=== PATIENT | female | born 1935 | race Caucasian/White ===

== ENCOUNTER 2024-03-30 04:45 | Emergency (ER) | payer OTHER, SELFPAY ==
[2024-03-30] VITALS (9 sets, daily range): BP systolic 131–153; BP diastolic 64–82; PULSE 76–78; BMI 31.3
--- NOTE | 2024-03-30 04:47 | ED.GENMED ---
History of Present Illness
<Mariella Triplett PA-C - Last Filed: 03/30/24 08:04>
General
Chief Complaint: Nose Bleed
Source: patient
Exam Limitations: none
Time Seen by Provider: 03/30/24 04:46
Nursing documentation reviewed up to this point in time: agreed with
History of Present Illness
History of Present Illness:
88-year-old female with past medical history of chronic anemia, hypertension, presents to the emergency department today with concerns of a nosebleed. Patient is from [place] and recently moved to [place] to live with her son.
Ubasofeg-ys-zed over the phone reports that patient got up in the morning to use the bathroom when she noted that her nose started bleeding. She then started to cough up blood shortly after her nose started bleeding. Patient denies any trauma to
the area. Patient does not take any blood thinners. Patient reports that multiple clots came from her nose. Patient also states that she feels dizzy and lightheaded. She denies chest pain, shortness of breath. She is able to ambulate without
difficulty. Of note, patient was recently discharged from the hospital in [place] for C.diff infection and metabolic encephalopathy. She was noted to be anemic and have low platelets at that time. Daughter in law reports that her hemoglobin was 8
upon discharge and that she had 'low platelets, elevated ammonia, elevated bilirubin, . Patient denies shortness of breath, alcohol use, NSAID use, chest pain.
Review of Systems
<Mariella Triplett PA-C - Last Filed: 03/30/24 08:04>
Review of Systems
All Other Systems: ROS reviewed and negative except as documented in HPI and ROS
Phy Exam
<Mariella Triplett PA-C - Last Filed: 03/30/24 08:04>
Physical Exam
Physical Exam:
General: Patient is well appearing and in no acute distress; non-toxic
Skin: Warm and dry, no rashes or lesions
Head: Normocephalic, atraumatic
Eyes: Sclera non-icteric. EOMs intact. PERRLA.
Cardiac: Regular rate and rhythm, no murmur
Pulm: Normal respiratory effort, no wheezes, rales, rhonchi
Abdomen: No abdominal tenderness no guarding, no rebound
Neuro: CN II-XII intact, no focal neurologic deficits.
Psychiatric: Appropriate mood and affect.
Course
<Mariella Triplett PA-C - Last Filed: 03/30/24 08:04>
Orders/Labs/Results
Orders:
Orders
03/30/24 05:01
IV Insert/Care/Rem.- Treatment PRN
03/30/24 05:03
Type+Screen Urgent
Complete Blood Count/With Diff Urgent
Comprehensive Metabolic Panel Urgent
03/30/24 05:25
ABO2 Urgent
BBK Wristband Number:
Associate notified that ABO2 has been ordered: [id number]
Date: 03/30/24
Time: 05:21
Assembling Inspector ID: [id number]
03/30/24 05:30
Orthostatic VS- Treatment ONCE
03/30/24 05:32
Electrocardiogram (*1) Urgent
Reason for Study: Vertigo / Dizzy
EKG- Treatment ONCE
03/30/24 06:19
Ammonia Urgent
Prothrombin Time Urgent
Abnormal Lab Results
03/30/24 03/30/24
05:03 06:19
RBC 2.27 L 10^6/uL
(4.20-5.40)
Hgb 8.2 L g/dL
(12.0-16.0)
Hct 22.9 L %
(37.0-47.0)
MCV 100.9 H fL
(81.0-99.0)
MCH 36.1 H pg
(27.0-31.0)
RDW 16.7 H %
(11.5-14.5)
Abs Immat Gran (auto) 0.1 H 10^3/uL
(0-0.05)
Absolute Monos (auto) 1.0 H 10^3/uL
(0.1-0.6)
Immature Gran % 0.6 H %
(0-0.5)
Lymphocytes % 19.7 L %
(20.5-51.1)
Monocytes % 10.0 H %
(1.7-9.3)
PT 21.5 H Sec
(11.4-14.6)
Potassium 3.0 L mmol/L
(3.5-5.1)
BUN 21 H mg/dl
(7-17)
Creatinine 0.5 L mg/dL
(0.6-1.0)
Glucose 135 H mg/dl
(70-99)
Total Bilirubin 6.5 H mg/dl
(0.2-1.3)
AST 102 H U/L
(14-36)
ALT 49 H U/L
(0-35)
Alkaline Phosphatase 202 H U/L
(38-126)
Total Protein 6.0 L g/dl
(6.3-8.2)
Albumin 2.8 L g/dl
(3.5-5.0)
03/30/24 05:03
03/30/24 05:03
Vital Signs
Initial and Last Documented VS:
Initial Vital Signs
Pulse Resp
97 18
03/30/24 04:53 03/30/24 04:53
Last Documented Vital Signs
Pulse Resp BP Pulse Ox
89 18 152/64 94
03/30/24 07:43 03/30/24 07:43 03/30/24 07:00 03/30/24 06:45
<Evie Lara, DO - Last Filed: 03/30/24 07:54>
Orders/Labs/Results
Orders:
Orders
03/30/24 05:01
IV Insert/Care/Rem.- Treatment PRN
03/30/24 05:03
Type+Screen Urgent
Complete Blood Count/With Diff Urgent
Comprehensive Metabolic Panel Urgent
03/30/24 05:25
ABO2 Urgent
BBK Wristband Number:
Associate notified that ABO2 has been ordered: [id number]
Date: 03/30/24
Time: 05:21
Assembling Inspector ID: [id number]
03/30/24 05:30
Orthostatic VS- Treatment ONCE
03/30/24 05:32
Electrocardiogram (*1) Urgent
Reason for Study: Vertigo / Dizzy
EKG- Treatment ONCE
03/30/24 06:19
Ammonia Urgent
Prothrombin Time Urgent
Abnormal Lab Results
03/30/24 03/30/24
05:03 06:19
RBC 2.27 L 10^6/uL
(4.20-5.40)
Hgb 8.2 L g/dL
(12.0-16.0)
Hct 22.9 L %
(37.0-47.0)
MCV 100.9 H fL
(81.0-99.0)
MCH 36.1 H pg
(27.0-31.0)
RDW 16.7 H %
(11.5-14.5)
Abs Immat Gran (auto) 0.1 H 10^3/uL
(0-0.05)
Absolute Monos (auto) 1.0 H 10^3/uL
(0.1-0.6)
Immature Gran % 0.6 H %
(0-0.5)
Lymphocytes % 19.7 L %
(20.5-51.1)
Monocytes % 10.0 H %
(1.7-9.3)
PT 21.5 H Sec
(11.4-14.6)
Potassium 3.0 L mmol/L
(3.5-5.1)
BUN 21 H mg/dl
(7-17)
Creatinine 0.5 L mg/dL
(0.6-1.0)
Glucose 135 H mg/dl
(70-99)
Total Bilirubin 6.5 H mg/dl
(0.2-1.3)
AST 102 H U/L
(14-36)
ALT 49 H U/L
(0-35)
Alkaline Phosphatase 202 H U/L
(38-126)
Total Protein 6.0 L g/dl
(6.3-8.2)
Albumin 2.8 L g/dl
(3.5-5.0)
03/30/24 05:03
03/30/24 05:03
Vital Signs
Initial and Last Documented VS:
Initial Vital Signs
Pulse Resp
97 18
03/30/24 04:53 03/30/24 04:53
Last Documented Vital Signs
Pulse Resp BP Pulse Ox
89 18 152/64 94
03/30/24 07:43 03/30/24 07:43 03/30/24 07:00 03/30/24 06:45
Isaaclt;Mariella Triplett PA-C - Last Filed: 03/30/24 08:04>
MDM/Problems Addressed
Differential Diagnosis Includes:
Differentials include epistaxis, gastritis, esophageal varices, dehydration, anemia
MDM/Problems Addressed:
88-year-old female with past medical history of chronic anemia, hypertension, presents to the emergency department today with concerns of a nosebleed. Patient is from [place] and recently moved to [place] to live with her son.
Pckciubp-bb-fzi over the phone reports that patient got up in the morning to use the bathroom when she noted that her nose started bleeding. She also had episodes of coughing up blood. Upon arrival to emergency department, she had some mild
lightheadedness but no longer has any bleeding, she has no abdominal pain, she is afebrile.
I was able to obtain previous medical records from son. Patient is currently being worked up for low platelets, elevated LFT T's and elevated bilirubin. She does have history of fatty liver disease. We were able to view records from son and
patient's lab work is improved from prior. Will discharge with outpatient follow-up and follow-up with geriatrics. No indication for admission at this time. Patient stable for discharge.
Chronic conditions affecting care:
hypertension, anemia
<Mariella Triplett PA-C - Last Filed: 03/30/24 08:04>
*Pulse Oximetry
Patient hypoxic: no
*Critical Care Note
Total Time (30-74mins, 75-104mins- exclusive of procedures): Not Applicable
Data Reviewed
Review of Other/Old Records Reveals: Records (No previous ER physician documentation to review, no discharge summaries for review)
Source: patient and records
Prescriptions/Medications Considered But Not Given:
n/a
Further Testing Considered But Not Given:
n/a
ED Attending Note
<Mariella Triplett PA-C - Last Filed: 03/30/24 08:04>
-
Portions of this chart may have been created with voice recognition software.� Occasional wrong word or��sound alike� substitutions may have occurred due to the inherent limitations of voice recognition software.
<Evie Lara DO - Last Filed: 03/30/24 07:54>
ED Attending Note
Patient seen and examined by attending physician: Yes
I performed a history and physical exam of patient and discussed management with resident, I reviewed resident's note and agree with documented findings and plan of care.: Yes
ED Attending Note:
This is an 88-year-old woman who was hospitalized 1 week ago initially for treatment of UTI, found to have hepatic encephalopathy with elevated ammonia level. Noted to be anemic as well as thrombocytopenic with chronically elevated LFTs,
chronically elevated bilirubin ranging from 4-7. CT abdomen pelvis noted for fatty liver but no evidence of cirrhosis. She was treated for UTI then found to have C. difficile, currently on oral vancomycin for C. difficile. Discharged 1 week ago
from hospital in [place] and currently staying with her daughter and son-in-law locally. While hospitalized she was evaluated by civil preparedness officer, underwent bone marrow biopsy, results are pending.
She is brought to the ED by EMS after suffering an acute nosebleed tonight. No insightful injury. No prior history of nosebleeds.
No active bleeding as per EMS but intermittent coughing and gagging and spitting up small amount of dark blood.
She denies chest pain nor abdominal pain, no dizziness nor lightheadedness.
No prior history of hematemesis nor GI bleed.
88-year-old woman appears her stated age, awake and alert, pleasant, appears in no acute distress. When questioned she often refers to her daughter but follows commands easily and easily conversant.
HEENT: Mild icterus. Nares are patent without evidence of blood nor active bleeding. Posterior pharynx is clear without streaking of blood.
Neck is supple, nontender, no adenopathy.
Heart is regular rate and rhythm.
Lungs are clear to auscultation, respirations are easy and nonlabored.
Abdomen is soft and nontender. No palpable masses.
Extremities with trace pretibial edema, no clubbing or cyanosis. Nontender. Peripheral pulses are full and equal bilaterally.
Patient presents with reported epistaxis prehospital has stopped without specific intervention. No evidence of posterior epistaxis.
Labs show moderate anemia with hemoglobin of 8.2 which is improved from discharge hemoglobin of 8.0.
Platelet count is normal at 134, markedly improved from 1 week ago.
Mildly elevated LFTs with moderately elevated bilirubin, overall stable from previous.
INR 1.85. Similar to previous.
Patient has been observed in the ED over the past 3 hours without recurrent epistaxis, no cough, no vomiting.
Daughter assures me that bleeding initially was from nose, spontaneous epistaxis and not hematemesis nor hemoptysis. She has had no bleeding from anywhere since arrival to the ED.
Labs are reassuring and unchanged from previous.
She remains hemodynamically stable.
Will discharge to home with recommendations that she avoid blowing, sniffing, picking her nose over the next 3 days. Thereafter may initiate saline nasal spray to both nostrils once or twice a day.
As patient currently residing with her daughter and son-in-law and they are attempting to establish with specialist in this area, will refer to hematology, GI as well as our referral service to establish with a PCP in this area.
Return precautions discussed.
Discharge Plan
Departure
Patient Disposition: Home (Routine Discharge)
Date of Disposition: 03/30/24
Time of Disposition: 07:09
Patient with high blood pressure during this ER visit?: Yes
Condition: Good
Discharge Problem:
Epistaxis
Instructions: Nosebleeds (DC), BLOOD PRESSURE
Referrals:
Justin Grey MD [Active] - Call in 1-3 days for appt
PRIVATE,PHYSICIAN [Family Provider] -
Activity Restrictions/Additional Instructions:
Should you continue to have nose bleeding, you can hold pressure just below the bony part of the nose and lean forward.
Your hemoglobin today was 8.2, which is an improvement, and your platelet count was 134 K which is also improved from prior. Otherwise, your chemistry panel demonstrates chronic elevations in bilirubin and LFTs.
We have attached a referral for Dr. Grey's office, a tightener, you can call the number today to schedule an appointment.
Please return to emergency department should you experience chest pain, shortness of breath with using activity, confusion, acute worsening of her symptoms, or any other signs or symptoms concerning you.
Interventions
Interventions:
*Risk Screen - Suicide Last Done: 03/30/24 04:48
*General Assessment Last Done: 03/30/24 04:48
*Neglect/Abuse Screening Last Done: 03/30/24 04:48
*ED COVID-19 Vaccine History Last Done: 03/30/24 04:48
ED-EENT Assessment Last Done: 03/30/24 05:18
Discharge Date and Time
Print Language: LITHUANIAN
[2024-03-30 05:15] LABS: % Basophils 0.8 % (0-2); % Immature Granulocytes 0.6 % (0-0.5); % Lymphocytes 19.7 % (20.5-51.1); % Neutrophils 64.9 % (42.2-75.2); Absolute Basophils 0.1 10^3/uL (0-0.2); Absolute Eosinophils 0.4 10^3/uL (0-0.7); Absolute Immature Granulocytes 0.1 10^3/uL (0-0.05); Absolute Lymphocytes 1.9 10^3/uL (1.2-3.4); Absolute Neutrophils 6.2 10^3/uL (1.4-6.5); Hematocrit 22.9 % (37.0-47.0); Hemoglobin 8.2 g/dL (12.0-16.0); Mean Corp Hgb Conc. 35.8 g/dL (33.0-37.0); Mean Corpuscular Hgb 36.1 pg (27.0-31.0); Mean Corpuscular Volume 100.9 fL (81.0-99.0); Mean Platelet Volume 10.1 fL (7.4-10.4); Nucleated Red Blood Cells % 0 %; Platelet Count 134 10^3/uL (130-400); Red Blood Cell Count 2.27 10^6/uL (4.20-5.40); Red Cell Dist. Width 16.7 % (11.5-14.5); White Blood Cell Count 9.5 10^3/uL (4.8-10.8)
[2024-03-30 05:38] LABS: ALT (SGPT) 49 U/L (0-35); AST (SGOT) 102 U/L (14-36); Albumin 2.8 g/dl (3.5-5.0); Alkaline Phosphatase 202 U/L (38-126); Blood Urea Nitrogen 21 mg/dl (7-17); Calcium 8.4 mg/dl (8.4-10.2); Carbon Dioxide 30 mmol/L (22-30); Chloride 103 mmol/L (98-107); Glucose 135 mg/dl (70-99); Sodium 139 mmol/L (135-145); Total Bilirubin 6.5 mg/dl (0.2-1.3); eGFR > 60.00
[2024-03-30 06:42] LABS: INR 1.85; PT 21.5 Sec (11.4-14.6)
[2024-03-30 06:53] LABS: Ammonia 28 umol/L (9-30)
== END 2024-03-30 08:24 | disposition home or self-care (01) ==
LOC: EMR 04:45
PROVIDERS: Physician Assistant; EMERGENCY PHYSICIAN Emergency Medicine
DX: R04.0 Epistaxis (principal); D64.9 Anemia, unspecified; I10 Essential (primary) hypertension; G93.41 Metabolic encephalopathy; K76.0 Fatty (change of) liver, not elsewhere classified
CPT/HCPCS: 99283; 80053; 82140; 85025; 85610; 86850; 86900; 86901; 93005

== ENCOUNTER 2024-04-03 08:28 | Inpatient (IN) | payer OTHER, SELFPAY ==
[2024-04-03] VITALS (18 sets, daily range): BP systolic 112–146; BP diastolic 45–79; BMI 32.0; BMI 31.0
[2024-04-03 05:58] LABS: % Eosinophils 7.1 % (0-6); % Immature Granulocytes 0.7 % (0-0.5); % Lymphocytes 14.9 % (20.5-51.1); % Neutrophils 62.3 % (42.2-75.2); Absolute Basophils 0.1 10^3/uL (0-0.2); Absolute Eosinophils 0.5 10^3/uL (0-0.7); Absolute Immature Granulocytes 0.1 10^3/uL (0-0.05); Absolute Lymphocytes 1.1 10^3/uL (1.2-3.4); Absolute Neutrophils 4.5 10^3/uL (1.4-6.5); Hematocrit 17.8 % (37.0-47.0); Hemoglobin 6.1 g/dL (12.0-16.0); Mean Corp Hgb Conc. 34.3 g/dL (33.0-37.0); Mean Corpuscular Volume 107.9 fL (81.0-99.0); Mean Platelet Volume 9.7 fL (7.4-10.4); Nucleated Red Blood Cells % 0 %; Platelet Count 115 10^3/uL (130-400); Red Blood Cell Count 1.65 10^6/uL (4.20-5.40); Red Cell Dist. Width 17.4 % (11.5-14.5); White Blood Cell Count 7.2 10^3/uL (4.8-10.8)
[2024-04-03 06:05] LABS: INR 2.05
[2024-04-03 06:06] LABS: APTT 48.3 Sec (23.4-35.0)
[2024-04-03 06:21] LABS: ALT (SGPT) 39 U/L (0-35); AST (SGOT) 87 U/L (14-36); Albumin 2.7 g/dl (3.5-5.0); Alkaline Phosphatase 134 U/L (38-126); Blood Urea Nitrogen 19 mg/dl (7-17); Carbon Dioxide 30 mmol/L (22-30); Chloride 102 mmol/L (98-107); Estimated Creatinine Clearance 57 ml/min; Glucose 115 mg/dl (70-99); Potassium 3.3 mmol/L (3.5-5.1); Sodium 138 mmol/L (135-145); Total Bilirubin 5.6 mg/dl (0.2-1.3); Total Protein 5.6 g/dl (6.3-8.2); eGFR > 60.00
--- NOTE | 2024-04-03 07:12 | ED.GENMED ---
History of Present Illness
General
Chief Complaint: Rectal Bleeding
Source: patient
Exam Limitations: none
Time Seen by Provider: 04/03/24 05:57
Nursing documentation reviewed up to this point in time: agreed with
History of Present Illness
History of Present Illness:
88-year-old female presents emergency ferment due to nosebleed and rectal bleeding. Recently hospitalized in [place] for UTI and C. difficile. Nosebleed started this morning, as well as rectal bleeding.
Past History
Past History
ED Past Medical History: HTN and Other (Anemia, fatty liver)
ED Past Surgical History: Appendectomy and Gynecological (Hysterectomy)
Social History
Tobacco: Non-smoker
Alcohol: None
Drug: None
Living: with family
Review of Systems
Review of Systems
Allergies reviewed?: Yes
All Other Systems: Not applicable
Constitutional: Reports no symptoms
EENT: Reports other (Epistaxis)
Respiratory: Reports no symptoms
Cardiac: Reports no symptoms
ABD/GI: Reports bloody stools
: Reports no symptoms
Musculoskeletal: Reports no symptoms
Skin: Reports no symptoms
Neurological: Reports no symptoms
Endocrine: Reports no symptoms
Hematologic/Lymphatic: Reports bleeding
Psychiatric: Reports no symptoms
Phy Exam
Physical Exam
Physical Exam:
Physical Exam
General: no apparent distress, not acutely ill
Neck: supple. no meningeal signs. normal posterior pharynx
Heart: s1/s2 regular rate and rhythm, no murmur. equal radial
pulses.
HEENT: Pupils equal round reactive to light, EOMI, right sided nosebleed, bleeding controlled
Lungs: no acute respiratory distress. clear bilaterally
Abdomen: normal bowel sounds. not tender. no CVAT, blood clots dark blood per rectum
Neuro: alert and oriented to person place. no focal neurological deficits cranial nerves II through XII intact
Skin: no rash
Psychiatric: well kept. interactive and cooperative
Extremities: no edema. no calf tenderness. negative homans. good distal pulses
Course
Orders/Labs/Results
Orders:
Orders
04/03/24 05:41
Cardiac Monitoring- Treatment ONCE
IV Insert/Care/Rem.- Treatment PRN
O2 Therapy [RESP] Urgent
Titrate/Wean O2 to maintain O2 sat greater than (%): 93
Special Instructions: MAINTAIN CONTINOUS O2 SATS > OR = 93%
Pulse Ox/spot Check [RESP] Urgent
Quantity: 1
Special Instructions: ON ROOM AIR
04/03/24 05:42
Type+Screen Urgent
Complete Blood Count/With Diff Urgent
Comprehensive Metabolic Panel Urgent
PTT Urgent
Prothrombin Time Urgent
04/03/24 07:21
Blood Bank Products [* Blood Bank Products] Urgent
'titus Orders: 1 unit prbcs
Blood Bank Products: *Packed RBC Leuko(PRBC's)
Quantity: 1
Transfuse Today: Yes
Reason: Bleeding
Abnormal Lab Results
04/03/24
05:42
RBC 1.65 L 10^6/uL
(4.20-5.40)
Hgb 6.1 L* D g/dL
(12.0-16.0)
Hct 17.8 L* %
(37.0-47.0)
MCV 107.9 H fL
(81.0-99.0)
MCH 37.0 H pg
(27.0-31.0)
RDW 17.4 H %
(11.5-14.5)
Plt Count 115 L 10^3/uL
(130-400)
Abs Immat Gran (auto) 0.1 H 10^3/uL
(0-0.05)
Absolute Lymphs (auto) 1.1 L 10^3/uL
(1.2-3.4)
Absolute Monos (auto) 1.0 H 10^3/uL
(0.1-0.6)
Immature Gran % 0.7 H %
(0-0.5)
Lymphocytes % 14.9 L %
(20.5-51.1)
Monocytes % 14.0 H %
(1.7-9.3)
Eosinophils % 7.1 H %
(0-6)
PT 23.0 H Sec
(11.4-14.6)
APTT 48.3 H Sec
(23.4-35.0)
Potassium 3.3 L mmol/L
(3.5-5.1)
BUN 19 H mg/dl
(7-17)
Creatinine 0.5 L mg/dL
(0.6-1.0)
Glucose 115 H mg/dl
(70-99)
Calcium 8.0 L mg/dl
(8.4-10.2)
Total Bilirubin 5.6 H mg/dl
(0.2-1.3)
AST 87 H U/L
(14-36)
ALT 39 H U/L
(0-35)
Alkaline Phosphatase 134 H U/L
(38-126)
Total Protein 5.6 L g/dl
(6.3-8.2)
Albumin 2.7 L g/dl
(3.5-5.0)
04/03/24 05:42
04/03/24 05:42
Vital Signs
Initial and Last Documented VS:
Initial Vital Signs
Temp Pulse Resp
97.9 F 98 19
04/03/24 05:29 04/03/24 05:29 04/03/24 05:29
Last Documented Vital Signs
Temp Pulse Resp BP Pulse Ox
97.9 F 109 18 119/48 93
04/03/24 05:29 04/03/24 07:15 04/03/24 07:15 04/03/24 07:00 04/03/24 07:15
MDM/Problems Addressed
Differential Diagnosis Includes:
Epistaxis, coagulopathy
MDM/Problems Addressed:
88-year-old female with lower GI bleed and epistaxis, coagulopathy.
Chronic conditions affecting care: Other (Liver dysfunction, coagulopathy)
Acute Exacerbation and/or Progression of Chronic Illness:
Coagulopathy
*Pulse Oximetry
Patient hypoxic: no
*Critical Care Note
Total Time (30-74mins, 75-104mins- exclusive of procedures): 30
comment:
Critical care statement: A total of 30 minutes of critical care time was provided for this patient. This includes management of unstable vital signs, evaluation of the patient at bedside, reviewing the patient's pertinent medical records, discussion
with consultants, review of old EKGs and review of pertinent medical records. This time with separate from time utilized to perform the aforementioned documented procedures
Data Reviewed
Further Testing Considered But Not Given:
CTA not indicated
Patient Management
Social determinants of health affecting care: Living situation and Strong social support
Discussion with other providers: Hospitalist
Escalation/DeEscalation of care consider admission/obs:
admit indicated
ED Attending Note
-
Portions of this chart may have been created with voice recognition software.� Occasional wrong word or��sound alike� substitutions may have occurred due to the inherent limitations of voice recognition software.
Discharge Plan
Departure
Patient Disposition: Admit
Date of Disposition: 04/03/24
Time of Disposition: 07:20
Admit to: IMU
Presentation/result/management discussed w/ accepting MD/DO: Hospitalist
Patient with high blood pressure during this ER visit?: Yes
Condition: Fair
Discharge Problem:
Rectal bleeding, Acute anterior epistaxis, Coagulopathy
Prescriptions:
No Action
losartan-hydrochlorothiazide
1 tab PO DAILY
Referrals:
PRIVATE,PHYSICIAN [Family Provider] -
Interventions
Interventions:
*Risk Screen - Suicide Last Done: 04/03/24 05:29
*General Assessment Last Done: 04/03/24 05:29
*Neglect/Abuse Screening Last Done: 04/03/24 05:29
*ED COVID-19 Vaccine History Last Done: 04/03/24 06:00
ED- Pulmonary Assessment Last Done: 04/03/24 06:04
ED-EENT Assessment Last Done: 04/03/24 06:04
ED- Cardiac Assessment Last Done: 04/03/24 06:04
UV-Zrfwms-Zwkvpamaox Assessment Last Done: 04/03/24 06:07
Discharge Date and Time
Print Language: VIETNAMESE
--- NOTE | 2024-04-03 07:27 | HPS.HSE ---
Family Physician
-
Family Physician: PHYSICIAN PRIVATE
Chief Complaint
-
nose bleed and rectal bleed
History of Present Illness
HPI: 88-year-old female PMH HTN, p/w nosebleed and rectal bleeding. She was recently hospitalized in [place] for UTI and C. difficile.
According to DIL at bedside, pt developed nose bleed 4 days COPS, then rectal bleed the day COPS. Rectal bleed was bright red blood, associated with clots.
Pt had completed vancomycin for recent C diff colitis, and her stool was starting to get formed.
Medical History
Past Medical History
Past Medical History: Reports HTN
Past Surgical History: Reports None
Social History
Tobacco: Non-smoker
Alcohol: None
Living: With Family
Family History
Family History: Not pertinent
Allergies / Home Medications
Allergies reflects when Allergies were last updated in [employer].
Home Medications with original date entered in [employer]
Allergy/Medication List:
Allergies
Allergy/AdvReac Type Severity Reaction Status Date / Time
No Known Allergies Allergy Unverified 03/30/24 04:48
Home Medications
losartan-hydrochlorothiazide 1 tab PO DAILY 04/03/24
Review of Systems
-
EENT: Reports See HPI and Other (nose bleed)
Abdomen/GI: Reports See HPI and Bloody Stools; Denies Abdominal Pain
Physical Exam
Vital Signs
Vital Signs
Temp Pulse Resp BP Pulse Ox
36.6 C 109 18 119/48 93
04/03/24 05:29 04/03/24 07:15 04/03/24 07:15 04/03/24 07:00 04/03/24 07:15
Physical Exam
General: Well Developed, Well Nourished, No Apparent Distress, Comfortable and Appears Chronically Ill
HEENT: NormoCephalic, Moist mucous membranes, Atraumatic and Hearing Impaired
Respiratory: Clear and Non Labored Respirations; No Accessory Resp Muscle Use
Cardiac: S1/S2 and Regular Rhythm; No Murmur or Rub
GI: Soft, Non Tender, Non Distended and Normal Bowel Sounds; No Organomegaly
Rectal: Deferred by Provider
Musculoskeletal: No Clubbing, No Cyanosis, Edema, Left Lower Extremity and Edema, Right Lower Extremity
Skin: No Rash
Neuro: Awake and Alert
Psych: Calm
Laboratory Results
-
04/03/24 05:42
04/03/24 05:42
Laboratory Results
PT 23.0 Sec (11.4-14.6) H 04/03/24 05:42
INR 2.05 04/03/24 05:42
APTT 48.3 Sec (23.4-35.0) H 04/03/24 05:42
Total Bilirubin 5.6 mg/dl (0.2-1.3) H 04/03/24 05:42
AST 87 U/L (14-36) H 04/03/24 05:42
ALT 39 U/L (0-35) H 04/03/24 05:42
Alkaline Phosphatase 134 U/L (38-126) H 04/03/24 05:42
Data Reviewed
-
Lab Data: Labs Reviewed by me
Impression/Plan
-
HPI: 88-year-old female PMH HTN, p/w nosebleed and rectal bleeding. She was recently hospitalized in [place] for UTI and C. difficile.
According to DIL at bedside, pt developed nose bleed 4 days COPS, then rectal bleed the day COPS. Rectal bleed was bright red blood, associated with clots.
Pt had completed vancomycin for recent C diff colitis, and her stool was starting to get formed.
A/P:
# Acute blood loss anemia, due to rectal bleed with clots and nose bleed
Hgb 6.1, transfuse 1 unit PRBC
Follow Hgb
start empiric PPI IV BID
Check iron panel, B12, folate level
GI CS
# Hypokalemia
replete IV
# Mildly elevated LFT
monitor
# BL LE swelling, unclear duration
check Echo
# HTN
Hold COPS HCTZ/losartan
IV hydralazine PRN for SBP > 160
# Recent UTI and C diff colitis
DVT ppx: SCD
DNR DNI, confirmed with DIL at bedside
[2024-04-03] MEDS: KCL 270 MEQ IV (08:13)
--- NOTE | 2024-04-03 08:43 | CON.GI ---
Addendum entered and electronically signed by Brenda Spence MD 04/03/24 20:07:
I saw and examined the patient.
The resident's note was reviewed and I agree with the note.
Comment: 88-year-old female with history of hypertension brought in by family for nosebleeds/rectal bleeding. She was in the ER for nosebleeds but was discharged home but this morning as per [id number] patient had significant rectal
bleeding and that is what brought her back to the hospital. Patient was in [facility], admitted to the hospital in [place] was told that she had C. difficile and also anemia. Never had any, endoscopies or colonoscopy, reported bone marrow
biopsy, results inconclusive. Was told she had fatty liver and low platelets as well. Patient is not able to give me much history, spoke to patient's [id number] who gives some of the history but she is not completely familiar either.
Reviewing labs, patient's hemoglobin on admission was 6.1, she got a unit of packed red blood cells. Macrocytic. Iron studies show saturation of 41, ferritin of 269, unclear if patient received blood transfusion in the previous hospital or IV
iron. LFTs were elevated, total bilirubin of 5.6 with a direct of 1.7, AST of 87, ALT of 39 and alkaline phosphatase of 134. Albumin of 2.7, B12 of more than 1000.INR of 2.0.
Nose history of smoking or alcohol. No known family history of colon cancer or polyps no previous endoscopies or colonoscopies.
-Rectal bleeding, anemia-macrocytic and concurrent nosebleed
Elevated INR, slightly low platelet count
Unclear if there is any history of chronic anemia prior to this episode of bleeding.
Ideally he will need an upper endoscopy and colonoscopy to evaluate but given elevated LFTs, we will start with imaging first.
Continue PPI.
Will check stool for infection, C. difficile, Cryptosporidium and Giardia.
-Elevated LFTs, mainly indirect bilirubin and transaminases.
Will check haptoglobulin, LDH, hepatitis A/B/C serologies, celiac panel.
Will do CT scan of the abdomen and pelvis with oral and IV contrast.
Hematology/oncology evaluation will be warranted.
-Unclear reason for nosebleeds
ENT evaluation might help
Will follow
crap game box person is patient's [id number] [phone]
Original Note:
Documented by User: Ankita Cabrera MD, Resident 04/03/24 12:22
Consultation
-
Date/Time Consultation Requested: 04/03/24 07:26 am
Date/Time Consultation Performed: 04/03/24 09.12 am
Requesting Provider: Alida Uribe MD
Performing Provider: Ankita Cabrera MD
Reason for Consultation: Rectal bleeding
Medical History
Chief Complaint / HPI
Chief Complaint: Rectal bleeding, nose bleeding, weakness
History of Present Illness:
The patient is 88-year old female who presented to ER on 04/03 am complaining from nosebleed and rectal bleeding. The patient was seen with her DIL at bedside who provided most of the history. DIL stated that the patient had a nose bleed about 4-5
days ago and had started to have rectal bleeding since Wednesday. The patient had her first episode of bowel bleeding on Wednesday and had another episode of bleeding last night. Her DIL showed the picture of patient`s stool which includes has
dark+bright red color blood with clots. Additionally, her DIL reported that the patient also coughed some blood a few times. The patient denies any abdominal pain and denies any bleeding problems prior. Her DIL reports the patient did not have a
colonoscopy or endoscopy and did not have regular physician visits during her life. About 2 weeks ago, the patient was hospitalized in [place] due UTI and C diff colitis which she completed her antibiotic treatment for her recent diagnosed colitis
following the patient started to have formed stools until Wednesday. Her DIL stated that the patient has bone marrow biopsy at [facility] due having similar lab results including low Hgb, low plt levels and the biopsy result was showed only
anemia. Per her DIL report, The patient had elevated LFT, TB , BUN and was obtained studies at this hospital and her viral hepatitis panel was obtained all results came back negative.
Past Medical History
Past Medical History: HTN and Other (anemia chronic , fatty liver )
Past Surgical History: Appendectomy and Gynecological (hysterectomy )
Social History
Tobacco: Non-Smoker
Alcohol: None
Drug: None
Living: With Family
Family History
Family History: Reviewed & Not Pertinent
Allergies / Home Medications
Allergy/AdvReac Type Severity Reaction Status Date / Time
No Known Allergies Allergy Unverified 03/30/24 04:48
�Medication �Instructions �Recorded
acetaminophen 325 mg tablet 650 mg PO Q6HPRN PRN headaches 04/03/24
(Tylenol)
benzonatate 100 mg capsule 100 mg PO BIDPRN PRN cough 04/03/24
hydroxyzine pamoate 50 mg capsule 50 mg PO BIDPRN PRN allergies 04/03/24
magnesium oxide 400 mg PO DAILY 04/03/24
therapeutic multivitamin 1 tab PO DAILY 04/03/24
valsartan 320 1 tab PO DAILY 04/03/24
mg-hydrochlorothiazide 12.5 mg
tablet
vitamin B complex 1 tab PO DAILY 04/03/24
Review of Systems
-
History Source: Patient and Family
EENT: Reports Other (reports nosebleeds )
Respiratory: Reports No Symptoms
Cardiac: Reports No Symptoms
Abdomen/GI: Reports No Symptoms
: Reports No Symptoms
Musculoskeletal: Reports Other (weakness)
Skin: Reports No Symptoms
Neurological: Reports No Symptoms
Vital Signs
Temp Pulse Resp BP Pulse Ox
98.1 F 86 16 126/55 95
04/03/24 08:40 04/03/24 08:40 04/03/24 08:40 04/03/24 08:40 04/03/24 08:40
Physical Exam
Exam
General: Other (appears chronically ill )
HEENT: Normocephalic and Anicteric
Respiratory: Clear
Cardiac: S1/S2 and Regular Rhythm
GI: Soft, Non Tender and Non Distended
Musculoskeletal: Edema
Skin: Warm
Neuro: Awake, Alert, Oriented and AO x 3
Results
WBC 7.2 10^3/uL (4.8-10.8) 04/03/24 05:42
Hgb 6.1 g/dL (12.0-16.0) L* D 04/03/24 05:42
Hct 17.8 % (37.0-47.0) L* 04/03/24 05:42
MCV 107.9 fL (81.0-99.0) H 04/03/24 05:42
Plt Count 115 10^3/uL (130-400) L 04/03/24 05:42
Absolute Neuts (auto) 4.5 10^3/uL (1.4-6.5) 04/03/24 05:42
PT 23.0 Sec (11.4-14.6) H 04/03/24 05:42
INR 2.05 04/03/24 05:42
APTT 48.3 Sec (23.4-35.0) H 04/03/24 05:42
Sodium 138 mmol/L (135-145) 04/03/24 05:42
Potassium 3.3 mmol/L (3.5-5.1) L 04/03/24 05:42
Chloride 102 mmol/L (98-107) 04/03/24 05:42
Carbon Dioxide 30 mmol/L (22-30) 04/03/24 05:42
BUN 19 mg/dl (7-17) H 04/03/24 05:42
Creatinine 0.5 mg/dL (0.6-1.0) L 04/03/24 05:42
Calcium 8.0 mg/dl (8.4-10.2) L 04/03/24 05:42
Total Bilirubin 5.6 mg/dl (0.2-1.3) H 04/03/24 05:42
AST 87 U/L (14-36) H 04/03/24 05:42
ALT 39 U/L (0-35) H 04/03/24 05:42
Alkaline Phosphatase 134 U/L (38-126) H 04/03/24 05:42
Diagnostic Image Results:
No imaging
Prior GI Procedures:
No known endoscopy or colonoscopy procedure done in the past
Assessment / Plan
-
Impression: The patient presented to ER this morning complaining both nosebleed and rectal bleeding. Her nasal bleeding started 4-5 days and and her rectal bleeding started 2 days ago. She had 2 episodes of bloody bowel movements. DIL of the patient
also reports that the patient also was coughing blood during she had nosebleed.She has only PMH of chronic anemia, HTN and fatty liver. She is not on any anti-coagulant and denies NSAI taking. She did not have a regular visits with any physician.
She recently was admitted to a hospital in [place] about 2-3 weeks ago and was treated for UTI and C-diff Colitis. She completed her antibiotic treatment for colitis and had normal bowel movements until Wednesday. She was also obtained further
studies at this hospital having elevated LFT,BUN, TB and having low hgb, PLT levels. She was obtained bone marrow biopsy and hepatitis panel which resulted negative.
Assessment /Plan:
# Acute anemia on chronic anemia likely multifactorial
-She was obtained further tests at her previous hospitalization to address her low hgb and low platelet counts
-Involving hematology-Oncology is recommended; Low PLT, low hgb and abnormal CBC diff results
-Melena and hematochezia: Endoscopy and colonoscopy can be considered regarding patient`s ongoing GI bleeding
-On clear liquid diet
-Less likely infectious, low suspicion for C. difficile with melena and hematochezia
-Stool studies including culture, C. difficile testing, stool WBC, stool culture were ordered
-Keep Hgb >7 , iron panel studies pending
-Continue PPI BID
#Elevated LFT levels
-Patient was obtained viral hepatitis tests at her previous hospitalization in [place] which resulted negative
-Obtaining records would be appreciated
-AST and ALT levels trending down
-
-
Thank you for consultation and allowing me to participate in the patient's care. Please call the airline lounge receptionist GI physician during the after hours with any questions or concerns.

Documented by User: Brenda Spence MD 04/03/24 19:57
Assessment / Plan
-
Impression: The patient presented to ER this morning complaining both nosebleed and rectal bleeding. Her nasal bleeding started 4-5 days and and her rectal bleeding started 2 days ago. She had 2 episodes of bloody bowel movements. DIL of the patient
also reports that the patient also was coughing blood during she had nosebleed.She has only PMH of chronic anemia, HTN and fatty liver. She is not on any anti-coagulant and denies NSAI taking. She did not have a regular visits with any physician.
She recently was admitted to a hospital in [place] about 2-3 weeks ago and was treated for UTI and C-diff Colitis. She completed her antibiotic treatment for colitis and had normal bowel movements until Wednesday. She was also obtained further
studies at this hospital having elevated LFT,BUN, TB and having low hgb, PLT levels. She was obtained bone marrow biopsy and hepatitis panel which resulted negative.
Assessment /Plan:
# Acute anemia on chronic anemia likely multifactorial
-She was obtained further tests at her previous hospitalization to address her low hgb and low platelet counts
-Involving hematology-Oncology is recommended; Low PLT, low hgb and abnormal CBC diff results
-Melena and hematochezia: Endoscopy and colonoscopy can be considered regarding patient`s ongoing GI bleeding
-On clear liquid diet
-Less likely infectious, low suspicion for C. difficile with melena and hematochezia
-Stool studies including culture, C. difficile testing, stool WBC, stool culture were ordered
-Keep Hgb >7 , iron panel studies pending
-Continue PPI BID
#Elevated LFT levels
-Patient was obtained viral hepatitis tests at her previous hospitalization in [place] which resulted negative
-Obtaining records would be appreciated
-AST and ALT levels trending down
Please see recommendations on addendum.
[2024-04-03 08:56] LABS: Iron 79 ug/dl (37-170)
[2024-04-03 09:05] LABS: Percent Saturation 41 % (20-50); Total Iron Binding Capacity 189 ug/dl (265-497)
[2024-04-03 12:09] LABS: Folate 17.4 ng/ml (2.76-20); Vitamin B12 > 1000 pg/ml (239-931)
[2024-04-03] MEDS: PROTONIX IV 40 MG IV ×2 (15:23→21:21)
[2024-04-03] MEDS: NSS (PRESERVATIVE FREE) 10 ML IV ×2 (15:23→21:21)
[2024-04-03 17:49] LABS: Direct Bilirubin 1.7 mg/dl (0.0-0.4)
[2024-04-03] MEDS: FLUSH (NSS) 2 FLUSH IV (21:21)
[2024-04-04] VITALS (12 sets, daily range): BP systolic 111–165; BP diastolic 54–87; PULSE 95–100; O2SAT 93–94
[2024-04-04] MEDS: AFRIN NASAL SPRAY 2 SPRAYS NASAL (01:46)
[2024-04-04] MEDS: NSS 500 IV (01:52)
[2024-04-04 02:23] LABS: % Basophils 0.7 % (0-2); % Immature Granulocytes 1.1 % (0-0.5); % Lymphocytes 16.3 % (20.5-51.1); % Monocytes 9.6 % (1.7-9.3); % Neutrophils 65.3 % (42.2-75.2); Absolute Basophils 0.1 10^3/uL (0-0.2); Absolute Eosinophils 0.6 10^3/uL (0-0.7); Absolute Immature Granulocytes 0.1 10^3/uL (0-0.05); Absolute Lymphocytes 1.5 10^3/uL (1.2-3.4); Absolute Monocytes 0.9 10^3/uL (0.1-0.6); Absolute Neutrophils 5.9 10^3/uL (1.4-6.5); Hematocrit 17.4 % (37.0-47.0); Hemoglobin 6.3 g/dL (12.0-16.0); Mean Corp Hgb Conc. 36.2 g/dL (33.0-37.0); Mean Corpuscular Hgb 35.2 pg (27.0-31.0); Mean Corpuscular Volume 97.2 fL (81.0-99.0); Mean Platelet Volume 9.7 fL (7.4-10.4); Nucleated Red Blood Cells % 0 %; Platelet Count 111 10^3/uL (130-400); Red Blood Cell Count 1.79 10^6/uL (4.20-5.40); Red Cell Dist. Width 22.2 % (11.5-14.5)
--- NOTE | 2024-04-04 03:56 | W.PN.UPDATE ---
Update Note
Progress Note Update
0130 pt started with epistaxis r nare. Blood with clots coming out of nose and also coughing up blood. clot seen in right nare. Attempted afrin spray and manual pressure. Then escalated to rhino rocket in right nare.
Stat PRBC ordered. HH 6.3
ENT consult placed
[2024-04-04 03:58] LABS: Anisocytosis 2+; Hypochromasia OCC; Normal RBC Morphology No; Polychromasia Occasional
--- NOTE | 2024-04-04 04:32 | PTCARENOTE ---
Addendum entered by Lian Bhatti RN 04/04/24 05:34:
Pt tolerated PRBC without incident.
Original Note:
Approximately 0130 pt began with a coughing fit that led to epistaxis of the R nare. Pt had significant blood and clots running from her nose, in addition to coughing up blood/clots leading to vomiting ~400cc bright red blood. Manual pressure was
applied with minimal relief. Covering CIVIL RIGHTS REPRESENTATIVE evaluated bedside, Afrin nose spray attempted to slow bleeding without relief. Rhino rocket placed to the R nare successfully stopping the bleed. 500cc bolus ordered and given, see MAR. STAT CBC ordered and
drawn, critical Hgb/Hct (6.3/17.4) reported to CIVIL RIGHTS REPRESENTATIVE. 1 unit PRBC ordered and hung. Pt remains without recurrent bleed at this time. Resting comfortably in bed, blood transfusing, call michele within reach.
[2024-04-04 04:42] LABS: Basophilic Stippling Occasional; Ovalocytes Occasional; Target Cells Occasional; Toxic Granulation Occassional
[2024-04-04] MEDS: OMNIPAQUE PO (06:01)
[2024-04-04] MEDS: OMNIPAQUE 50 ML PO (06:04)
[2024-04-04 08:46] LABS: Hematocrit 21.8 % (37.0-47.0); Hemoglobin 7.8 g/dL (12.0-16.0); Mean Corp Hgb Conc. 35.8 g/dL (33.0-37.0); Mean Corpuscular Hgb 33.3 pg (27.0-31.0); Mean Corpuscular Volume 93.2 fL (81.0-99.0); Mean Platelet Volume 10.3 fL (7.4-10.4); Platelet Count 100 10^3/uL (130-400); Red Blood Cell Count 2.34 10^6/uL (4.20-5.40); Red Cell Dist. Width 21.7 % (11.5-14.5); White Blood Cell Count 8.9 10^3/uL (4.8-10.8)
[2024-04-04 09:10] LABS: ALT (SGPT) 39 U/L (0-35); AST (SGOT) 90 U/L (14-36); Albumin 2.5 g/dl (3.5-5.0); Alkaline Phosphatase 101 U/L (38-126); Blood Urea Nitrogen 18 mg/dl (7-17); Calcium 7.8 mg/dl (8.4-10.2); Carbon Dioxide 26 mmol/L (22-30); Chloride 106 mmol/L (98-107); Direct Bilirubin 2.6 mg/dl (0.0-0.4); Estimated Creatinine Clearance 56 ml/min; Glucose 139 mg/dl (70-99); LDH 348 U/L (120-246); Magnesium 2.3 mg/dl (1.6-2.3); Sodium 136 mmol/L (135-145); Total Protein 5.3 g/dl (6.3-8.2); eGFR > 60.00
[2024-04-04 09:47] LABS: Hepatitis B Surface Antigen Negative (Negative)
[2024-04-04] MEDS: PROTONIX IV 40 MG IV ×2 (09:51→20:28)
[2024-04-04] MEDS: NSS (PRESERVATIVE FREE) 10 ML IV ×2 (09:52→20:29)
[2024-04-04 09:53] LABS: Hepatitis A IgM Antibody Negative (Negative)
[2024-04-04 10:04] LABS: Hepatitis B Surface Antibody Negative; Hepatitis C Antibody Negative (Negative)
--- NOTE | 2024-04-04 11:02 | W.PN.HOSP.TC ---
Today's Communication/Plan
-
see A/P
Assessment / Plan
Assessment / Plan
HPI: 88-year-old female PMH HTN, p/w nosebleed and rectal bleeding. She was recently hospitalized in [place] for UTI and C. difficile.
According to DIL at bedside, pt developed nose bleed [address] ADMINISTRATOR, then rectal bleed the day SUPERVISOR ROAD ADMINISTRATOR. Rectal bleed was bright red blood, associated with clots.
Pt had completed vancomycin for recent C diff colitis, and her stool was starting to get formed.
A/P:
# Acute blood loss anemia, due to rectal bleed, nose bleed and ?hemolysis
Hgb 6.1, transfused 1 unit PRBC, Hgb improved to 7.8
Follow Hgb
iron panel suggest ACD
noted indirect hyperbilirubinemia
Follow haptoglobin,
Check retic count
LDH at 350,
Heme CS
# GIB with clot
GI on board
# Epistaxis
rhino rocket placed in right nare.
ENT consulted
# Hypokalemia
repleted
# Elevated LFT
monitor
Follow hepatitis A/B/C serologies, celiac panel.
CT AP with oral and IV contrast ordered
GI on board
# BL LE swelling, unclear duration
check Echo
# HTN
Hold SUPERVISOR ROAD ADMINISTRATOR HCTZ/losartan
IV hydralazine PRN for SBP > 160
# Recent UTI and C diff colitis
DVT ppx: SCD
DNR DNI, confirmed with DIL at bedside
Anticipated Discharge: > 48 hours
Subjective/Interval History
-
Date of Service: April 04, 2024
Objective Data
-
Labs:
Laboratory Results
04/04/24 04/04/24 04/04/24
01:45 02:10 08:03
WBC 9.0 8.9
Hgb Cancelled 6.3 L* 7.8 L D
Hct Cancelled 17.4 L* 21.8 L
Plt Count 111 L 100 L
Sodium 136
Potassium 4.0
Chloride 106
Carbon Dioxide 26
BUN 18 H
Creatinine 0.5 L
Glucose 139 H
Calcium 7.8 L
Total Bilirubin 8.0 H
AST 90 H
ALT 39 H
Alkaline Phosphatase 101
Vital Signs:
Vital Signs
Temp Pulse Resp BP Pulse Ox
36.4 C 96 16 124/86 96
04/04/24 10:59 04/04/24 10:59 04/04/24 10:59 04/04/24 10:59 04/04/24 10:59
I&O
04/03/24 04/04/24 04/05/24
06:59 06:59 06:59
Intake Total 1430 / 1430
Output Total 150 / 150
Balance 1280 / 1280
Review of Systems
-
EENT: Reports Other (R nostril with rhino rocket)
Physical Exam
-
General: Well Developed, Well Nourished, No Apparent Distress, Comfortable and Conversant
HEENT: Normocephalic, Atraumatic, Nose Appears Normal, Ears Appear Normal and Other (R nostril with rhino rochet); Negative Oxygen
Respiratory: Clear to Auscultation and Non Labored Respirations; Negative Accessory Resp Muscle Use
Cardiac: Regular Rhythm and S1/S2
GI: Soft, Nontender, Nondistended and Normal Bowel Sounds
Skin: Warm and Dry
Neuro: Awake and Alert
Psych: Calm
Data Reviewed
-
Labs: Labs Reviewed by me
--- NOTE | 2024-04-04 11:20 | W.PN.GI.CBS2 ---
Addendum entered and electronically signed by Ramesh Timmons MD 04/04/24 18:06:
I saw and examined the patient.
The medical numerical control operator note was reviewed and I agree with the note.
Patient is a poor historian.
-- Acute on chronic anemia
-- Rectal bleeding-CT imaging showing mild enterocolitis
-- Epistaxis
-- Recent C. difficile colitis. Recent stool testing here negative for C. difficile
-- Liver cirrhosis
plan
Continue monitor H&H
Hematology note reviewed-hemolytic anemia workup pending
Rectal bleeding can be secondary to enterocolitis with recent history of C. difficile
Follow-up stool culture
Will eventually discuss about endoscopic evaluation with family-inpatient versus outpatient (if agreeable). Will hold off on it for now with recurrent epistaxis/recent infectious colitis
Patient needs to follow-up with GI as outpatient-further workup for liver cirrhosis as outpatient
Original Note:
Today's Communication / Plan
-
.
Assessment / Plan
-
Impression: The patient presented to ER this morning complaining both nosebleed and rectal bleeding. Her nasal bleeding started 5-6 days and and her rectal bleeding started 3 days ago. She had 2 episodes of bloody bowel movements. DIL of the patient
also reports that the patient also was coughing blood during she had nosebleed.She has only PMH of chronic anemia, HTN and fatty liver. She is not on any anti-coagulant and denies NSAI taking. She did not have a regular visits with any physician.
She recently was admitted to a hospital in [place] about 2-3 weeks ago and was treated for UTI and C-diff Colitis. She completed her antibiotic treatment for colitis and had normal bowel movements until Wednesday. She was also obtained further
studies at this hospital having elevated LFT,BUN, TB and having low hgb, PLT levels. She was obtained bone marrow biopsy and hepatitis panel which resulted negative. The patient had another episode of nosebleed last night and was consulted to ENT.
Assessment /Plan:
# Acute anemia on chronic anemia likely multifactorial along rectal bleeding
-She was obtained further tests at her previous hospitalization to address her low hgb and low platelet counts
-Involving hematology-Oncology is recommended; Low PLT, low hgb and abnormal CBC diff results, other stool studies pending
-Melena and hematochezia: Endoscopy and colonoscopy can be considered regarding patient`s ongoing GI bleeding
-CT scan of abdomen: Suspicion for a mild enterocolitis. Mild abdominopelvic ascites.Colonic diverticulosis. Small bilateral pleural effusions.
-Plan an upper endoscopy and colonoscopy will be discussed with the attending
-Echo is pending
-On clear liquid diet
-Less likely infectious: C. difficile negative
-Stool studies: stool WBC, stool culture pending
-Keep Hgb >7 , iron panel studies pending
-Continue PPI BID
#Elevated LFT levels
-Patient was obtained acute viral hepatitis tests: Negative
-AST and ALT, ALP levels trending down
Subjective
Subjective
Date of Service: April 04, 2024
The patient was seen in her room alone. She was awake, alert and oriented but had problems with her memory. She is not a good historian and denied abdominal pain , diarrhea and vomiting since the admission.
Objective
Data Reviewed
Laboratory Data:
Laboratory Results
04/04/24 08:03
04/04/24 08:03
Laboratory Results
PT 23.0 Sec (11.4-14.6) H 04/03/24 05:42
INR 2.05 04/03/24 05:42
APTT 48.3 Sec (23.4-35.0) H 04/03/24 05:42
Magnesium 2.3 mg/dl (1.6-2.3) 04/04/24 08:03
Total Bilirubin 8.0 mg/dl (0.2-1.3) H 04/04/24 08:03
AST 90 U/L (14-36) H 04/04/24 08:03
ALT 39 U/L (0-35) H 04/04/24 08:03
Alkaline Phosphatase 101 U/L (38-126) 04/04/24 08:03
Vital Signs and I&O:
Vital Signs
Temp Pulse Resp BP Pulse Ox
97.5 F 96 16 124/86 96
04/04/24 10:59 04/04/24 10:59 04/04/24 10:59 04/04/24 10:59 04/04/24 10:59
I&O
04/03/24 04/04/24 04/05/24
06:59 06:59 06:59
Intake Total 1430 / 1430
Output Total 150 / 150
Balance 1280 / 1280
Physical Exam
Physical Exam
HEENT: Anicteric and Moist mucous membranes
Cardiology: Normal Sinus Rhythm, S1 and S2
Pulmonary: Clear
GI: Soft, Non Distended and Non Tender
Extremities: Edema
[2024-04-04 11:40] LABS: Reticulocyte Count 6.1 % (0.4-2.8)
--- NOTE | 2024-04-04 11:51 | CON.ONC ---
Impression
Impression
macrocytic anemia
suspected hemolysis
mild thrombocytopenia
coagulopathy, INR = 2
recent UTI, recent Cdiff colitis
?dementia
Plan
Plan
Will give Vit K with INR 2 and bleeding, suspect Vit K deficiency with recent abx for UTI and Cdiff colitis
Will request full bone marrow biopsy results from [facility]
AMILCAR pending, haptoglobin pending
Likely will start steroids pending AMILCAR results
Will check peripheral blood flow cytometry
Monitor CBC, transfuse as clinically indicated
GI w/u underway
Further heme w/u pending results of above
Patient History
History of Present Illness
88yo F brought to ER by family w/ epistaxis for several days, and then rectal bleeding. Recent hx noted for hospitalization in [facility] with UTI and Cdiff colitis, treated with abx and po vanco. Labs in [place] were noted for pancytopenia, with
elevated retic/bili/LDH, for which she underwent BM bx on 03/20/24. It appears (from records provided by son) that path was sent to [facility] for interpretation. Flow cytometry was negative, FISH myeloid panel was negative and karyotype was normal. Full
morphologic assessment of marrow specimen is not available, may still be pending. Imaging in [place] and here at suggests cirrhosis.
CBC at admission noted for hgb 6.1, up to 7.8 today after transfusion. Admission MCV was 107.9, WBC 7.2 and platelets 115. Coags noted for INR 2.05, PTT 48.3. Creatinine is 0.5, calcium 7.8, tbili 8.0, dbili 2.6, ferritin 269, LDH 348, b12/folate
adequate. Hepatitis screening is negative.
Patient is a very poor historian, son at bedside.
Past-Medical/Surgical History
PMH - HTN, ?dementia
SH - recently brought to [facility] w/ family in [place], previously in [place], no alcohol, non smoker
FH - not pertinent
Patient Medication
�Medication �Instructions �Recorded �Confirmed �Last Taken �Type
acetaminophen 325 mg tablet 650 mg PO Q6HPRN PRN headaches 04/03/24 04/03/24 3 Days Ago History
(Tylenol) ~03/31/24
benzonatate 100 mg capsule 100 mg PO BIDPRN PRN cough 04/03/24 04/03/24 7 Days Ago History
~03/27/24
hydroxyzine pamoate 50 mg capsule 50 mg PO BIDPRN PRN allergies 04/03/24 04/03/24 3 Weeks Ago History
~03/13/24
magnesium oxide 400 mg PO DAILY Electrolyte 04/03/24 04/03/24 Unknown History
Repletion
therapeutic multivitamin 1 tab PO DAILY Supplement 04/03/24 04/03/24 Unknown History
valsartan 320 1 tab PO DAILY Blood Pressure 04/03/24 04/03/24 Unknown History
mg-hydrochlorothiazide 12.5 mg
tablet
vitamin B complex 1 tab PO DAILY Supplement 04/03/24 04/03/24 Unknown History
Active Medications
Generic Name Dose Route Start Last Admin
Trade Name Freq PRN Reason Stop Dose Admin
Hydralazine HCl 10 mg 04/03/24 15:12
Hydralazine 20 Mg/Ml Vial IV 05/01/24 15:11
Q4HPRN PRN
SBP > 160
Pantoprazole Sodium 40 mg 04/03/24 15:12 04/04/24 09:51
Pantoprazole Sodium 40 Mg/10 Ml Vial IV 05/01/24 15:11 40 mg
BID CRIS Administration
Sodium Chloride 0 flush 04/03/24 16:00 04/03/24 21:21
Sodium Chloride 0.9% (Flush) Syringe IV 05/01/24 15:59 2 flush
PER PROTOCOL CRIS Administration
Sodium Chloride 10 ml 04/03/24 15:12 04/04/24 09:52
Sodium Chloride 0.9% (Preservative Free) 10 Ml Vial IV 05/01/24 15:11 10 ml
BID CRIS Administration
Review of Systems
-
Unable to obtain full review of systems at this time due to: Dementia
History Source: Patient
All Other Systems: Not reviewed unless documented
Physical Exam
-
General: Well Developed, Well Nourished and No Apparent Distress
HEENT: Jaundice, Moist Mucous Membranes and Other (left nares rhino rocket)
Cardiology: Normal Sinus Rhythm
Pulmonary: Clear
GI: Soft and Normal Bowel Sounds
Musculoskeletal: No Clubbing, No Cyanosis and No Edema
Extremities: No C/C/E
Neurology: Non Focal
Skin: Warm and Dry
Hematologic / Lymphatic: No Lymphadenopathy
Psych: Calm and Confused; Negative Intact Judgement/Insight
Labs
Lab Results
WBC 8.9 10^3/uL (4.8-10.8) 04/04/24 08:03
RBC 2.34 10^6/uL (4.20-5.40) L 04/04/24 08:03
Hgb 7.8 g/dL (12.0-16.0) L D 04/04/24 08:03
Hct 21.8 % (37.0-47.0) L 04/04/24 08:03
MCV 93.2 fL (81.0-99.0) 04/04/24 08:03
MCH 33.3 pg (27.0-31.0) H 04/04/24 08:03
MCHC 35.8 g/dL (33.0-37.0) 04/04/24 08:03
RDW 21.7 % (11.5-14.5) H 04/04/24 08:03
Plt Count 100 10^3/uL (130-400) L 04/04/24 08:03
MPV 10.3 fL (7.4-10.4) 04/04/24 08:03
Abs Immat Gran (auto) 0.1 10^3/uL (0-0.05) H 04/04/24 02:10
Absolute Neuts (auto) 5.9 10^3/uL (1.4-6.5) 04/04/24 02:10
Absolute Lymphs (auto) 1.5 10^3/uL (1.2-3.4) 04/04/24 02:10
Absolute Monos (auto) 0.9 10^3/uL (0.1-0.6) H 04/04/24 02:10
Absolute Eos (auto) 0.6 10^3/uL (0-0.7) 04/04/24 02:10
Absolute Basos (auto) 0.1 10^3/uL (0-0.2) 04/04/24 02:10
Immature Gran % 1.1 % (0-0.5) H 04/04/24 02:10
Neutrophils % 65.3 % (42.2-75.2) 04/04/24 02:10
Lymphocytes % 16.3 % (20.5-51.1) L 04/04/24 02:10
Monocytes % 9.6 % (1.7-9.3) H 04/04/24 02:10
Eosinophils % 7.0 % (0-6) H 04/04/24 02:10
Basophils % 0.7 % (0-2) 04/04/24 02:10
Creatinine 0.5 mg/dL (0.6-1.0) L 04/04/24 08:03
Vital Signs
Vital Signs
Temp Pulse Resp BP Pulse Ox
97.5 F 96 16 124/86 96
04/04/24 10:59 04/04/24 10:59 04/04/24 10:59 04/04/24 10:59 04/04/24 10:59
[2024-04-04] MEDS: MEPHYTON 10 MG PO (12:42)
--- NOTE | 2024-04-04 14:16 | PTOTSP ---
ST Acute Care Evaluation
Pt currently presents with clinical signs of a functional oropharyngeal swallow. No skilled dysphagia services warranted at this time.
Recommendations:
- Continue with regular solids, thin liquids, meds as tolerated.
- General aspiration precautions: eat slowly; avoid speaking while eating.
- DIAMOND SANDER to sign off, as pt does not present with any skilled dysphagia needs at this time.
- MD to inquire about pt's baseline cognitive linguistic function - suspect some level of dementia. Consult DIAMOND SANDER if pt is acutely deviated from baseline and warrants further assessment. If not, recommending neuropsych eval as an OP.
--- NOTE | 2024-04-04 15:04 | CM ---
CM spoke with DIL/Sonja
Pt from [facility] and moved to son and DIL's home locally 2 weeks prior
2SH with 2+2+1+1 DANIEL and 1st floor set up
Pt ambulates 1 person assist with SPC
DIL assists with all bathing
Pt with cognitive impairments and alert and oriented to family and home only
No financial insecurities
PCP- no local PCP, resident clinic info provided
Rx- [facility]
PT/OT following with SNF recs
Dtr requesting homecare through [facility] be arranged as pt is typically a 1 person assist at baseline
Referral to [facility]
Discharge Disposition- home with [facility], will likely need anabella walker to be issued on dc and new appt at resident clinic
--- NOTE | 2024-04-04 15:42 | VNURNOTE ---
Home Health Liaison spoke with patient's daughter in law Sonja to discuss [facility] nurse/therapy, visits, schedule and homebound status. BONIFACIO is agreeable and understands that visits at home will be 2-3 x per week to assess and teach medical management.
BONIFACIO understands [facility] cannot see patient until seen by a primary at residency clinic. Res clinic # provided to BONIFACIO. She will call today to make an appt. Also provided DIL w/[facility] liaison contact information. She is aware that [facility] will contact them
for start of care in 1-2 days after seen at Res Clinic. Noted on referral. [facility] referral completed in [facility].
--- NOTE | 2024-04-04 17:42 | CON.MD ---
Consultation - Medical
-
Patient seen and evaluated at the bedside.
Full consult dictated.
A/P- 88-year-old female with epistaxis
-Patient with recurrent epistaxis, had episode last evening, nose now packed.
-Patient doing well with packing in place, no further bleeding.
-May have some coagulopathy, hematology workup in progress.
-Would keep packing in place for 48 hours.
-Plan on removing packing .
-Hopefully patient will be stable enough at that time and knows will have no further bleeding.
-Call if problems arise prior to .
-The above plan was discussed with the patient and her son at the bedside.
[2024-04-04] MEDS: OCEAN, SALINE MIST NASAL ×3 (18:31→22:30)
--- NOTE | 2024-04-04 23:50 | PTCARENOTE ---
Addendum entered by Court Kirk RN 04/04/24 23:58:
Of note, at beginning of shift, pt did not have rhino rocket in place. No bleeding noted at beginning of shift. At 23:30, there was a small trickle of blood coming from the R nare and some blood on her tongue. It appeared to have stopped on its own.
Original Note:
PCT called for help. Went into the room and the pt was completely naked, tele monitor off, walking to the bathroom after starting to have bloody diarrhea. Pt had set off the bed alarm but had swiftly gotten up. Bed linens changed, pt cleaned, got pt
back to bed. She reported feeling shaky and dizzy. Vital signs obtained and house provider notified. STAT H&H ordered and drawn. Medsitter obtained. Will continue to monitor.
[2024-04-04 23:58] LABS: Hematocrit 21.3 % (37.0-47.0); Hemoglobin 7.6 g/dL (12.0-16.0)
[2024-04-05] VITALS (8 sets, daily range): BP systolic 110–158; BP diastolic 53–91
[2024-04-05 06:56] LABS: Hematocrit 18.3 % (37.0-47.0); Hemoglobin 6.6 g/dL (12.0-16.0); Mean Corp Hgb Conc. 36.1 g/dL (33.0-37.0); Mean Corpuscular Hgb 33.5 pg (27.0-31.0); Mean Corpuscular Volume 92.9 fL (81.0-99.0); Mean Platelet Volume 10.1 fL (7.4-10.4); Platelet Count 106 10^3/uL (130-400); Red Blood Cell Count 1.97 10^6/uL (4.20-5.40); Red Cell Dist. Width 22.6 % (11.5-14.5); White Blood Cell Count 7.5 10^3/uL (4.8-10.8)
[2024-04-05 07:12] LABS: ALT (SGPT) 43 U/L (0-35); AST (SGOT) 100 U/L (14-36); Albumin 2.2 g/dl (3.5-5.0); Alkaline Phosphatase 144 U/L (38-126); Blood Urea Nitrogen 19 mg/dl (7-17); Calcium 7.6 mg/dl (8.4-10.2); Carbon Dioxide 27 mmol/L (22-30); Chloride 107 mmol/L (98-107); Direct Bilirubin 1.8 mg/dl (0.0-0.4); Estimated Creatinine Clearance 56 ml/min; Glucose 104 mg/dl (70-99); Potassium 3.6 mmol/L (3.5-5.1); Sodium 139 mmol/L (135-145); Total Bilirubin 4.9 mg/dl (0.2-1.3); eGFR > 60.00
--- NOTE | 2024-04-05 10:55 | W.PN.HOSP.TC ---
Today's Communication/Plan
-
see A/P
Assessment / Plan
Assessment / Plan
HPI: 88-year-old female PMH HTN, p/w nosebleed and rectal bleeding. She was recently hospitalized in [place] for UTI and C. difficile.
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 Rectal bleed was bright red blood, associated with clots.
Pt had completed vancomycin for recent C diff colitis, and her stool was starting to get formed.
A/P:
# Acute blood loss anemia; due to rectal bleed, nose bleed and possible hemolytic anemia
transfuse second unit PRBC today for Hgb 6.6
Follow Hgb
iron panel suggest ACD
# GIB with clot
GI on board
# Epistaxis
Pt removed R nostril rhino rocket
ENT on board
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
noted indirect hyperbilirubinemia
retic count high at 6.1
Follow haptoglobin,
Check AMILCAR per heme. Possible steroids pending AMILCAR results
check peripheral blood flow cytometry
Of note, outside hospital flow cytometry and marrow biopsy results were unrevealing
LDH at 350,
Heme on board
s/p Vit K with INR 2 and bleeding, suspect Vit K deficiency with recent abx for UTI and Cdiff colitis
# Hypokalemia
repleted
# Elevated LFT
monitor LFT
Hepatitis A/B/C serologies negative
Follow celiac panel.
CT AP with oral and IV contrast noted 1. Suspicion for a mild enterocolitis. 2. Slight nodularity of the liver contour raising concern for the early changes of cirrhosis.3. Mild abdominopelvic ascites.
GI on board
# BL LE swelling, unclear duration
Echo unrevealing: EF 60-65%. Aortic sclerosis without stenosis
# HTN
Hold CLIN APPLICATION SPECIALIST HCTZ/losartan
IV hydralazine PRN for SBP > 160
# Recent UTI and C diff colitis
DVT ppx: SCD
DNR DNI, confirmed with DIL at bedside
Dispo: PT OT recc SNF
DW RN
updated son on the phone. Extensive discussion. Answered all questions
total time spent 51 min
Anticipated Discharge: > 48 hours
Subjective/Interval History
-
Date of Service: April 05, 2024
Objective Data
-
Labs:
Laboratory Results
04/04/24 04/05/24
23:44 06:06
WBC 7.5
Hgb 7.6 L 6.6 L*
Hct 21.3 L 18.3 L*
Plt Count 106 L
Sodium 139
Potassium 3.6
Chloride 107
Carbon Dioxide 27
BUN 19 H
Creatinine 0.5 L
Glucose 104 H
Calcium 7.6 L
Total Bilirubin 4.9 H
AST 100 H
ALT 43 H
Alkaline Phosphatase 144 H
Vital Signs:
Vital Signs
Temp Pulse Resp BP Pulse Ox
37.0 C 80 16 110/73 97
04/05/24 10:51 04/05/24 10:51 04/05/24 10:51 04/05/24 10:51 04/05/24 10:51
I&O
04/04/24 04/05/24 04/06/24
06:59 06:59 06:59
Intake Total 1430 / 1430 360 / 360
Output Total 150 / 150
Balance 1280 / 1280 360 / 360
Review of Systems
-
All other systems: Reviewed and negative
Physical Exam
-
General: Well Developed, Well Nourished, No Apparent Distress, Comfortable and Conversant
HEENT: Normocephalic, Atraumatic, Nose Appears Normal and Ears Appear Normal; Negative Oxygen
Respiratory: Clear to Auscultation and Non Labored Respirations; Negative Accessory Resp Muscle Use
Cardiac: Regular Rhythm and S1/S2
GI: Soft, Nontender, Nondistended and Normal Bowel Sounds
Skin: Warm and Dry
Neuro: Awake and Alert
Psych: Calm; Negative Intact Judgement/Insight
Data Reviewed
-
CT Scan: Report Reviewed by me
Labs: Labs Reviewed by me
[2024-04-05] MEDS: OCEAN, SALINE MIST 2 SPRAYS NASAL ×3 (10:59→20:48)
[2024-04-05] MEDS: PROTONIX IV 40 MG IV ×2 (11:02→20:47)
[2024-04-05] MEDS: NSS (PRESERVATIVE FREE) 10 ML IV ×2 (11:02→20:47)
[2024-04-05 11:28] LABS: tTG IgA Antibody 10.4 EU/ml (0-19); tTG IgG Antibody 14.1 EU/ml (0-19)
[2024-04-05] MEDS: OCEAN, SALINE MIST 1 SPRAYS NASAL (14:06)
[2024-04-05] MEDS: KCL 40 MEQ PO (14:06)
--- NOTE | 2024-04-05 16:05 | W.PN.GI.CBS2 ---
Today's Communication / Plan
-
continue monitor H/H
Assessment / Plan
-
Impression: The patient presented to ER this morning complaining both nosebleed and rectal bleeding. Her nasal bleeding started 5-6 days and and her rectal bleeding started 3 days ago. She had 2 episodes of bloody bowel movements. DIL of the patient
also reports that the patient also was coughing blood during she had nosebleed.She has only PMH of chronic anemia, HTN and fatty liver. She is not on any anti-coagulant and denies NSAID taking. She did not have a regular visits with any
physician. She recently was admitted to a hospital in [place] about 2-3 weeks ago and was treated for UTI and C-diff Colitis. She completed her antibiotic treatment for colitis and had normal bowel movements until Wednesday. She was also obtained
further studies at this hospital having elevated LFT,BUN, TB and having low hgb, PLT levels. She was obtained bone marrow biopsy and hepatitis panel which resulted negative. The patient had another episode of nosebleed last night and was consulted
to ENT.
Patient is a poor historian.
-- Acute on chronic anemia
-- Rectal bleeding-CT imaging showing mild enterocolitis
-- Recent C. difficile colitis. Recent stool testing here negative for C. difficile
---Recurrent Epistaxis
-- Liver cirrhosis on imaging
plan
Continue monitor H&H
Hematology note reviewed-hemolytic anemia workup pending
Rectal bleeding can be secondary to enterocolitis with recent history of C. difficile vs diverticular bleed. no prior colonoscopy
Will check ammonia level in a.m.
Follow-up stool culture
I had a long discussion with patient's son Eoduard regarding benefits and risk of endoscopic evaluation including EGD/colonoscopy. He is not sure whether patient will be able to tolerate the procedure/bowel prep. He would like to discuss with other
family members as well.
If significant rectal bleeding will recommend CTA or bleeding scan
Patient needs to follow-up with GI as outpatient-further workup for liver cirrhosis as outpatient
Total Time Spent with Patient (in minutes): 35
Subjective
Subjective
Date of Service: April 05, 2024
Comfortably sitting in the chair. Discussed with RN. Patient received 1 unit of PRBC today. Had a BM with some blood/dark material this a.m. patient removed nasal packing-small epistaxis last night
Objective
Data Reviewed
Laboratory Data:
Laboratory Results
04/05/24 06:06
04/05/24 06:06
Laboratory Results
PT 23.0 Sec (11.4-14.6) H 04/03/24 05:42
INR 2.05 04/03/24 05:42
APTT 48.3 Sec (23.4-35.0) H 04/03/24 05:42
Magnesium 2.3 mg/dl (1.6-2.3) 04/04/24 08:03
Total Bilirubin 4.9 mg/dl (0.2-1.3) H 04/05/24 06:06
AST 100 U/L (14-36) H 04/05/24 06:06
ALT 43 U/L (0-35) H 04/05/24 06:06
Alkaline Phosphatase 144 U/L (38-126) H 04/05/24 06:06
Vital Signs and I&O:
Vital Signs
Temp Pulse Resp BP Pulse Ox
98 F 102 16 123/65 97
04/05/24 15:00 04/05/24 15:00 04/05/24 15:00 04/05/24 15:00 04/05/24 15:00
I&O
04/04/24 04/05/24 04/06/24
06:59 06:59 06:59
Intake Total 1430 / 1430 360 / 360 250 / 250
Output Total 150 / 150
Balance 1280 / 1280 360 / 360 250 / 250
Physical Exam
Physical Exam
GI: Soft, Non Distended and Non Tender
[2024-04-05 23:37] LABS: IgA 499 mg/dl (70-400)
[2024-04-06] VITALS (7 sets, daily range): BP systolic 112–172; BP diastolic 65–98
[2024-04-06 06:32] LABS: INR 1.63; PT 19.5 Sec (11.4-14.6)
[2024-04-06 06:34] LABS: Ammonia 43 umol/L (9-30)
[2024-04-06 06:36] LABS: Hematocrit 23.9 % (37.0-47.0); Hemoglobin 8.8 g/dL (12.0-16.0); Mean Corp Hgb Conc. 36.8 g/dL (33.0-37.0); Mean Corpuscular Hgb 33.8 pg (27.0-31.0); Mean Corpuscular Volume 91.9 fL (81.0-99.0); Mean Platelet Volume 10.3 fL (7.4-10.4); Platelet Count 91 10^3/uL (130-400); Red Cell Dist. Width 21.9 % (11.5-14.5); White Blood Cell Count 6.9 10^3/uL (4.8-10.8)
[2024-04-06 07:26] LABS: ALT (SGPT) 52 U/L (0-35); AST (SGOT) 129 U/L (14-36); Albumin 2.5 g/dl (3.5-5.0); Alkaline Phosphatase 131 U/L (38-126); Blood Urea Nitrogen 14 mg/dl (7-17); Calcium 8.1 mg/dl (8.4-10.2); Carbon Dioxide 24 mmol/L (22-30); Chloride 108 mmol/L (98-107); Direct Bilirubin 2.3 mg/dl (0.0-0.4); Estimated Creatinine Clearance 56 ml/min; Glucose 80 mg/dl (70-99); Potassium 3.8 mmol/L (3.5-5.1); Sodium 138 mmol/L (135-145); Total Bilirubin 6.5 mg/dl (0.2-1.3); Total Protein 5.4 g/dl (6.3-8.2); eGFR > 60.00
[2024-04-06] MEDS: PROTONIX IV 40 MG IV ×2 (08:09→21:19)
[2024-04-06] MEDS: DIOVAN 40 MG PO (08:09)
[2024-04-06] MEDS: NSS (PRESERVATIVE FREE) 10 ML IV ×2 (08:09→21:19)
[2024-04-06] MEDS: OCEAN, SALINE MIST 1 SPRAYS NASAL ×3 (08:10→22:22)
--- NOTE | 2024-04-06 10:28 | W.PN.HOSP.TC ---
Today's Communication/Plan
-
see A/P
Assessment / Plan
Assessment / Plan
HPI: 88-year-old female PMH HTN, p/w nosebleed and rectal bleeding. She was recently hospitalized in [place] for UTI and C. difficile.
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 Rectal bleed was bright red blood, associated with clots.
Pt had completed vancomycin for recent C diff colitis, and her stool was starting to get formed.
A/P:
# Acute blood loss anemia; due to rectal bleed, nose bleed and possible hemolytic anemia
s/p 3 units PRBC transfusion
Hgb today at 8.8
Follow Hgb
iron panel suggest ACD
# GIB with clot
GI on board
# Epistaxis
Pt removed R nostril rhino rocket
ENT on board
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
noted indirect hyperbilirubinemia
retic count high at 6.1
Follow haptoglobin,
AMILCAR per heme. Possible steroids pending AMILCAR results
check peripheral blood flow cytometry per heme
Of note, outside hospital flow cytometry and marrow biopsy results were unrevealing
LDH at 350,
Heme on board
s/p Vit K with improvement of INR from 2 to 1.6
# Hypokalemia
repleted and resolved
# Elevated LFT
monitor LFT
Hepatitis A/B/C serologies negative
Follow celiac panel.
CT AP with oral and IV contrast noted 1. Suspicion for a mild enterocolitis. 2. Slight nodularity of the liver contour raising concern for the early changes of cirrhosis.3. Mild abdominopelvic ascites.
GI on board
# BL LE swelling, unclear duration
Echo unrevealing: EF 60-65%. Aortic sclerosis without stenosis
# HTN
Resume Valsartan
Add Lopressor 12.5 BID for concurrnet tachycardia
Hold HCTZ with hypokalemia
IV hydralazine PRN for SBP > 160
# Recent UTI and C diff colitis
DVT ppx: SCD
DNR DNI, confirmed with DIL at bedside
Dispo: PT OT recc SNF
updated son on the phone.
Anticipated Discharge: 24 - 48 hours
Subjective/Interval History
-
Date of Service: April 06, 2024
Objective Data
-
Labs:
Laboratory Results
04/06/24
06:11
WBC 6.9
Hgb 8.8 L D
Hct 23.9 L
Plt Count 91 L
PT 19.5 H
INR 1.63
Sodium 138
Potassium 3.8
Chloride 108 H
Carbon Dioxide 24
BUN 14
Creatinine 0.5 L
Glucose 80
Calcium 8.1 L
Total Bilirubin 6.5 H
AST 129 H
ALT 52 H
Alkaline Phosphatase 131 H
Vital Signs:
Vital Signs
Temp Pulse Resp BP Pulse Ox
37.2 C 111 16 161/98 92
04/06/24 07:54 04/06/24 07:54 04/06/24 07:54 04/06/24 07:54 04/06/24 07:54
I&O
04/05/24 04/06/24 04/07/24
06:59 06:59 06:59
Intake Total 360 / 360 730 / 730
Balance 360 / 360 730 / 730
Review of Systems
-
All other systems: Reviewed and negative
Physical Exam
-
General: Well Developed, Well Nourished, No Apparent Distress, Comfortable and Conversant
HEENT: Normocephalic, Atraumatic, Nose Appears Normal and Ears Appear Normal; Negative Oxygen
Respiratory: Clear to Auscultation and Non Labored Respirations; Negative Accessory Resp Muscle Use
Cardiac: Regular Rhythm and S1/S2
GI: Soft, Nontender, Nondistended and Normal Bowel Sounds
Skin: Warm and Dry
Neuro: Awake and Alert
Psych: Calm; Negative Intact Judgement/Insight
Data Reviewed
-
CT Scan: Report Reviewed by me
Labs: Labs Reviewed by me
--- NOTE | 2024-04-06 11:47 | W.PN.ONC ---
Today's Communication / Plan
-
Will give Vit K with INR 2 and bleeding, suspect Vit K deficiency
Slight improvement in INR at 1.63
Will request full bone marrow biopsy results expected to arrive
AMILCAR pending negative no role for steroids
Consider echocardiogram for valvular hemolysis
May need evaluation for PNH pending additional information
Will check peripheral blood flow cytometry
Monitor CBC, transfuse as clinically indicated
Transfuse as needed for hemoglobin less than 7.0 g/dL
GI w/u underway
Impression
Impression
Normocytic anemia with elevated RDW
Blood loss anemia
Nonimmune hemolysis
Mild thrombocytopenia
Coagulopathy
Recent C. difficile
Subjective/Objective
Subjective/Objective
Patient clearly with some component of confusion. Asking the same questions over and over again. Appears to be in no acute distress with and without obvious active bleeding.
Vital Signs:
Vital Signs
Temp Pulse Resp BP Pulse Ox
98.1 F 105 16 112/87 97
04/06/24 11:17 04/06/24 11:17 04/06/24 11:17 04/06/24 11:17 04/06/24 11:17
HEENT mildly jaundiced
Heart regular
Extremities without pretibial edema
Lab Results:
Laboratory Data
WBC 6.9 10^3/uL (4.8-10.8) 04/06/24 06:11
Hgb 8.8 g/dL (12.0-16.0) L D 04/06/24 06:11
Plt Count 91 10^3/uL (130-400) L 04/06/24 06:11
PT 19.5 Sec (11.4-14.6) H 04/06/24 06:11
INR 1.63 04/06/24 06:11
APTT 48.3 Sec (23.4-35.0) H 04/03/24 05:42
eGFR > 60.00 10/31/24 06:11
[2024-04-06] MEDS: LOPRESSOR 12.5 MG PO ×2 (11:48→21:18)
[2024-04-06 12:12] LABS: Haptoglobin <10 mg/dL (30-200)
[2024-04-06 15:04] LABS: Endomysial IgA Antibody Titer <1:10 (<1:10)
--- NOTE | 2024-04-06 15:09 | CM ---
Chart reviewed: anticipated Discharge is 24-48 hours; PT/OT recommend SNF when medically stable for discharge
CM spoke via phone with sonEdouard; and Sonja Diaz; family will discuss Plan: SNF vs Home w/Home Health VN,PT
SNF options reviewed; #1 preference is [facility]
CM will follow up with Sonja VALDOVINOS #[phone] tomorrow late morning for family's disposition decision
--- NOTE | 2024-04-06 15:11 | W.PN.GI.CBS2 ---
Today's Communication / Plan
-
continue monitor H/H
outpatient GI follow up
Assessment / Plan
-
Impression: The patient presented to ER this morning complaining both nosebleed and rectal bleeding. Her nasal bleeding started 5-6 days and and her rectal bleeding started 3 days ago. She had 2 episodes of bloody bowel movements. DIL of the patient
also reports that the patient also was coughing blood during she had nosebleed.She has only PMH of chronic anemia, HTN and fatty liver. She is not on any anti-coagulant and denies NSAID taking. She did not have a regular visits with any
physician. She recently was admitted to a hospital in [place] about 2-3 weeks ago and was treated for UTI and C-diff Colitis. She completed her antibiotic treatment for colitis and had normal bowel movements until Wednesday. She was also obtained
further studies at this hospital having elevated LFT,BUN, TB and having low hgb, PLT levels. She was obtained bone marrow biopsy and hepatitis panel which resulted negative. The patient had another episode of nosebleed last night and was consulted
to ENT.
Patient is a poor historian.
-- Acute on chronic anemia. Etiology multifactorial-epistaxis/rectal bleed/hemolytic anemia
-- Rectal bleeding-CT imaging showing mild enterocolitis. Possible etiology diverticular versus colitis
-- Recent C. difficile colitis. Repeat stool testing here negative for C. difficile
---Recurrent Epistaxis-currently resolved
-- Liver cirrhosis on imaging
--coagulopathy - possible vit K def
plan
Continue monitor H&H
Hematology note reviewed-hemolytic anemia workup underway
Rectal bleeding can be secondary to enterocolitis with recent history of C. difficile vs diverticular bleed. Currently resolving. No prior colonoscopy
I had a long discussion with patient's son Edouard yesterday regarding benefits and risk of endoscopic evaluation including EGD/colonoscopy. He is not sure whether patient will be able to tolerate the procedure/bowel prep. He would like to discuss
with other family members as well. I also had a long discussion with her daughter at bedside today. She would also like to hold off on endoscopic evaluation including EGD/colonoscopy for now
If significant rectal bleeding again will recommend CTA or bleeding scan
Patient needs to follow-up with GI as outpatient-further workup for liver cirrhosis / anemia as outpatient
No further recommendation to add at this point. Will sign off. Will be available if any questions
Total Time Spent with Patient (in minutes): 35
Subjective
Subjective
Date of Service: April 06, 2024
Patient's daughter by bedside (came from ). Patient is alert awake and comfortable. Not oriented to place or time. As per RN no further rectal bleeding or epistaxis
Objective
Data Reviewed
Laboratory Data:
Laboratory Results
04/06/24 06:11
04/06/24 06:11
Laboratory Results
PT 19.5 Sec (11.4-14.6) H 04/06/24 06:11
INR 1.63 04/06/24 06:11
APTT 48.3 Sec (23.4-35.0) H 04/03/24 05:42
Magnesium 2.3 mg/dl (1.6-2.3) 04/04/24 08:03
Total Bilirubin 6.5 mg/dl (0.2-1.3) H 04/06/24 06:11
AST 129 U/L (14-36) H 04/06/24 06:11
ALT 52 U/L (0-35) H 04/06/24 06:11
Alkaline Phosphatase 131 U/L (38-126) H 04/06/24 06:11
Vital Signs and I&O:
Vital Signs
Temp Pulse Resp BP Pulse Ox
97.8 F 80 16 113/68 93
04/06/24 13:18 04/06/24 13:18 04/06/24 13:18 04/06/24 13:18 04/06/24 13:18
I&O
04/05/24 04/06/24 04/07/24
06:59 06:59 06:59
Intake Total 360 / 360 730 / 730
Balance 360 / 360 730 / 730
Physical Exam
Physical Exam
GI: Soft, Non Distended and Non Tender
[2024-04-06] MEDS: OCEAN, SALINE MIST NASAL (17:54)
[2024-04-07 03:05] VITALS: BP 130/71
[2024-04-07 07:48] VITALS: BP 149/69
[2024-04-07 08:35] LABS: Hematocrit 27.2 % (37.0-47.0); Hemoglobin 9.6 g/dL (12.0-16.0); Mean Corp Hgb Conc. 35.3 g/dL (33.0-37.0); Mean Corpuscular Hgb 33.7 pg (27.0-31.0); Mean Corpuscular Volume 95.4 fL (81.0-99.0); Mean Platelet Volume 9.9 fL (7.4-10.4); Platelet Count 113 10^3/uL (130-400); Red Blood Cell Count 2.85 10^6/uL (4.20-5.40); Red Cell Dist. Width 22.1 % (11.5-14.5); White Blood Cell Count 7.7 10^3/uL (4.8-10.8)
[2024-04-07 08:40] LABS: ALT (SGPT) 53 U/L (0-35); AST (SGOT) 123 U/L (14-36); Albumin 2.8 g/dl (3.5-5.0); Alkaline Phosphatase 146 U/L (38-126); Blood Urea Nitrogen 9 mg/dl (7-17); Calcium 8.5 mg/dl (8.4-10.2); Carbon Dioxide 25 mmol/L (22-30); Chloride 108 mmol/L (98-107); Direct Bilirubin 2.3 mg/dl (0.0-0.4); Estimated Creatinine Clearance 56 ml/min; Glucose 97 mg/dl (70-99); Potassium 3.8 mmol/L (3.5-5.1); Sodium 139 mmol/L (135-145); Total Bilirubin 6.9 mg/dl (0.2-1.3); Total Protein 5.8 g/dl (6.3-8.2); eGFR > 60.00
[2024-04-07] MEDS: OCEAN, SALINE MIST 1 SPRAYS NASAL ×3 (08:43→17:58)
[2024-04-07] MEDS: PROTONIX IV 40 MG IV ×2 (08:44→21:17)
[2024-04-07] MEDS: NSS (PRESERVATIVE FREE) 10 ML IV ×2 (08:44→21:16)
[2024-04-07] MEDS: DIOVAN 40 MG PO (08:45)
[2024-04-07] MEDS: LOPRESSOR 12.5 MG PO ×2 (08:45→21:16)
--- NOTE | 2024-04-07 11:07 | W.PN.HOSP.TC ---
Today's Communication/Plan
-
see A/P
Assessment / Plan
Assessment / Plan
HPI: 88-year-old female PMH HTN, p/w nosebleed and rectal bleeding. She was recently hospitalized in [place] for UTI and C. difficile.
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 Rectal bleed was bright red blood, associated with clots.
Pt had completed vancomycin for recent C diff colitis, and her stool was starting to get formed.
A/P:
# Acute blood loss anemia; due to rectal bleed, nose bleed and possible hemolytic anemia
s/p 3 units PRBC transfusion
Hgb today at 9.6
Follow Hgb
iron panel suggest ACD
# GIB with clot,
GIB appear to have resolved
GI on board
# Epistaxis, resolved
Pt removed R nostril rhino rocket
ENT on board
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
noted indirect hyperbilirubinemia
retic count high at 6.1
haptoglobin < 10,
AMILCAR negative, hence no indication for steroid
Peripheral blood flow cytometry per heme
Echo this admission unrevealing: EF 60-65%, Aortic sclerosis without stenosis .
Of note, outside hospital flow cytometry and marrow biopsy results were unrevealing
LDH at 350,
Heme on board
s/p Vit K with improvement of INR from 2 to 1.6
# Hypokalemia
repleted and resolved
# Elevated LFT
monitor LFT
Hepatitis A/B/C serologies negative
Celiac panel negative.
CT AP with oral and IV contrast noted 1. Suspicion for a mild enterocolitis. 2. Slight nodularity of the liver contour raising concern for the early changes of cirrhosis.3. Mild abdominopelvic ascites.
GI on board
# BL LE swelling, unclear duration
Echo unrevealing: EF 60-65%. Aortic sclerosis without stenosis
# HTN
Resumed low dose Valsartan
Added Lopressor 12.5 BID for concurrent tachycardia
Hold HCTZ with hypokalemia
IV hydralazine PRN for SBP > 160
# Recent UTI and C diff colitis
DVT ppx: SCD
DNR DNI, confirmed with DIL at bedside
Dispo: PT OT recc SNF
updated son/DIL on the phone
total time spent 51 min
Anticipated Discharge: 24 - 48 hours
Subjective/Interval History
-
Date of Service: April 07, 2024
Objective Data
-
Labs:
Laboratory Results
04/07/24
07:54
WBC 7.7
Hgb 9.6 L
Hct 27.2 L
Plt Count 113 L D
Sodium 139
Potassium 3.8
Chloride 108 H
Carbon Dioxide 25
BUN 9
Creatinine 0.5 L
Glucose 97
Calcium 8.5
Total Bilirubin 6.9 H
AST 123 H
ALT 53 H
Alkaline Phosphatase 146 H
Vital Signs:
Vital Signs
Temp Pulse Resp BP Pulse Ox
36.9 C 69 16 149/69 94
04/07/24 07:48 04/07/24 08:45 04/07/24 07:48 04/07/24 08:45 04/07/24 07:48
I&O
04/06/24 04/07/24 04/08/24
06:59 06:59 06:59
Intake Total 730 / 730 600 / 600
Balance 730 / 730 600 / 600
Review of Systems
-
All other systems: Reviewed and negative
Physical Exam
-
General: Well Developed, Well Nourished, No Apparent Distress, Comfortable and Conversant
HEENT: Normocephalic, Atraumatic, Nose Appears Normal and Ears Appear Normal; Negative Oxygen
Respiratory: Clear to Auscultation and Non Labored Respirations; Negative Accessory Resp Muscle Use
Cardiac: Regular Rhythm and S1/S2
GI: Soft, Nontender, Nondistended and Normal Bowel Sounds
Skin: Warm and Dry
Psych: Calm; Negative Intact Judgement/Insight
Data Reviewed
-
CT Scan: Report Reviewed by me
Labs: Labs Reviewed by me
[2024-04-07 11:44] VITALS: BP 150/86
[2024-04-07 11:56] LABS: Number Of Markers 26 markers; Source Blood
[2024-04-07 15:04] VITALS: BP 154/79
[2024-04-07 19:00] VITALS: BP 130/74
[2024-04-07] MEDS: OCEAN, SALINE MIST 2 SPRAYS NASAL (21:18)
[2024-04-07 23:00] VITALS: BP 152/69
[2024-04-08] VITALS (8 sets, daily range): BP systolic 76–175; BP diastolic 59–98; PULSE 73–109
[2024-04-08 07:16] LABS: Hematocrit 24.7 % (37.0-47.0); Hemoglobin 8.7 g/dL (12.0-16.0); Mean Corp Hgb Conc. 35.2 g/dL (33.0-37.0); Mean Corpuscular Hgb 33.9 pg (27.0-31.0); Mean Corpuscular Volume 96.1 fL (81.0-99.0); Mean Platelet Volume 10.1 fL (7.4-10.4); Platelet Count 116 10^3/uL (130-400); Red Blood Cell Count 2.57 10^6/uL (4.20-5.40); Red Cell Dist. Width 21.4 % (11.5-14.5); White Blood Cell Count 7.7 10^3/uL (4.8-10.8)
[2024-04-08 07:44] LABS: ALT (SGPT) 48 U/L (0-35); AST (SGOT) 113 U/L (14-36); Albumin 2.7 g/dl (3.5-5.0); Alkaline Phosphatase 140 U/L (38-126); Blood Urea Nitrogen 12 mg/dl (7-17); Calcium 8.4 mg/dl (8.4-10.2); Carbon Dioxide 24 mmol/L (22-30); Chloride 109 mmol/L (98-107); Estimated Creatinine Clearance 56 ml/min; Glucose 96 mg/dl (70-99); Sodium 140 mmol/L (135-145); Total Bilirubin 5.7 mg/dl (0.2-1.3); Total Protein 5.8 g/dl (6.3-8.2); eGFR > 60.00
[2024-04-08] MEDS: PROTONIX IV 40 MG IV ×2 (08:29→20:32)
[2024-04-08] MEDS: NSS (PRESERVATIVE FREE) 10 ML IV ×2 (08:29→20:32)
[2024-04-08] MEDS: LOPRESSOR 12.5 MG PO ×2 (08:29→20:33)
[2024-04-08] MEDS: DIOVAN 40 MG PO (08:29)
[2024-04-08] MEDS: OCEAN, SALINE MIST 1 SPRAYS NASAL (08:29)
--- NOTE | 2024-04-08 10:10 | W.PN.HOSP.TC ---
Today's Communication/Plan
-
see A/P
Assessment / Plan
Assessment / Plan
HPI: 88-year-old female PMH HTN, p/w nosebleed and rectal bleeding. She was recently hospitalized in [place] for UTI and C. difficile.
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 Rectal bleed was bright red blood, associated with clots.
Pt had completed vancomycin for recent C diff colitis, and her stool was starting to get formed.
A/P:
# Acute blood loss anemia; due to rectal bleed, nose bleed and possible hemolytic anemia
s/p 3 units PRBC transfusion
Hgb today at 8.7
Follow Hgb
iron panel suggest ACD
# GIB with clot,
GIB appear to have resolved
GI on board
# Epistaxis, resolved
Pt removed R nostril rhino rocket
ENT on board
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
noted indirect hyperbilirubinemia
retic count high at 6.1
haptoglobin < 10,
AMILCAR negative, hence no indication for steroid
Peripheral blood flow cytometry per heme
Echo this admission unrevealing: EF 60-65%, Aortic sclerosis without stenosis .
Of note, outside hospital flow cytometry and marrow biopsy results were unrevealing
LDH at 350,
Heme on board
s/p Vit K with improvement of INR from 2 to 1.6
# Hypokalemia
repleted and resolved
# Elevated LFT
monitor LFT
Hepatitis A/B/C serologies negative
Celiac panel negative.
CT AP with oral and IV contrast noted 1. Suspicion for a mild enterocolitis. 2. Slight nodularity of the liver contour raising concern for the early changes of cirrhosis.3. Mild abdominopelvic ascites.
GI on board
# Suspect dementia
Pt awake but not orientated
Informed family about outpt cognitive evaluation
# BL LE swelling, unclear duration
Echo unrevealing: EF 60-65%. Aortic sclerosis without stenosis
# HTN
Resumed Valsartan, adjust dose to 160 mg daily
Added Lopressor 12.5 BID for concurrent tachycardia, HR better controlled
Hold HCTZ with hypokalemia
IV hydralazine PRN for SBP > 160
# Recent UTI and C diff colitis
DVT ppx: SCD
DNR DNI, confirmed with DIL at bedside
Dispo: PT OT recc SNF
DW RN
updated son/DIL on the phone
Anticipated Discharge: 24 - 48 hours
Subjective/Interval History
-
Date of Service: April 08, 2024
Objective Data
-
Labs:
Laboratory Results
04/08/24
06:55
WBC 7.7
Hgb 8.7 L
Hct 24.7 L
Plt Count 116 L
Sodium 140
Potassium 4.0
Chloride 109 H
Carbon Dioxide 24
BUN 12
Creatinine 0.5 L
Glucose 96
Calcium 8.4
Total Bilirubin 5.7 H
AST 113 H
ALT 48 H
Alkaline Phosphatase 140 H
Vital Signs:
Vital Signs
Temp Pulse Resp BP Pulse Ox
36.6 C 73 17 171/79 92
04/08/24 07:00 04/08/24 07:00 04/08/24 07:00 04/08/24 07:00 04/08/24 07:00
I&O
04/07/24 04/08/24 04/09/24
06:59 06:59 05:59
Intake Total 600 / 600 1200 / 1200
Balance 600 / 600 1200 / 1200
Review of Systems
-
Unable to obtain full review of systems at this time due to: Dementia
All other systems: Reviewed and negative
Physical Exam
-
General: Well Developed, Well Nourished, No Apparent Distress, Comfortable and Conversant
HEENT: Normocephalic, Atraumatic, Nose Appears Normal and Ears Appear Normal; Negative Oxygen
Respiratory: Clear to Auscultation and Non Labored Respirations; Negative Accessory Resp Muscle Use
Cardiac: Regular Rhythm and S1/S2
GI: Soft, Nontender, Nondistended and Normal Bowel Sounds
Skin: Warm and Dry
Psych: Calm and Apparent Dementia; Negative Intact Judgement/Insight
Data Reviewed
-
CT Scan: Report Reviewed by me
Labs: Labs Reviewed by me
[2024-04-08] MEDS: DIOVAN 60 MG PO (10:42)
[2024-04-08] MEDS: OCEAN, SALINE MIST NASAL (14:55)
[2024-04-08] MEDS: OCEAN, SALINE MIST 2 SPRAYS NASAL ×2 (17:52→20:33)
[2024-04-09 03:00] VITALS: BP 144/57
[2024-04-09 05:07] LABS: Hematocrit 24.4 % (37.0-47.0); Hemoglobin 8.4 g/dL (12.0-16.0); Mean Corp Hgb Conc. 34.4 g/dL (33.0-37.0); Mean Corpuscular Hgb 32.6 pg (27.0-31.0); Mean Corpuscular Volume 94.6 fL (81.0-99.0); Mean Platelet Volume 10.3 fL (7.4-10.4); Platelet Count 112 10^3/uL (130-400); Red Blood Cell Count 2.58 10^6/uL (4.20-5.40); Red Cell Dist. Width 21.2 % (11.5-14.5)
[2024-04-09 05:33] LABS: ALT (SGPT) 41 U/L (0-35); AST (SGOT) 90 U/L (14-36); Albumin 2.5 g/dl (3.5-5.0); Alkaline Phosphatase 119 U/L (38-126); Blood Urea Nitrogen 11 mg/dl (7-17); Calcium 8.2 mg/dl (8.4-10.2); Carbon Dioxide 25 mmol/L (22-30); Chloride 108 mmol/L (98-107); Direct Bilirubin 2.1 mg/dl (0.0-0.4); Estimated Creatinine Clearance 56 ml/min; Glucose 101 mg/dl (70-99); Magnesium 2.1 mg/dl (1.6-2.3); Potassium 3.7 mmol/L (3.5-5.1); Sodium 138 mmol/L (135-145); Total Protein 5.4 g/dl (6.3-8.2); eGFR > 60.00
[2024-04-09 07:00] VITALS: BP 173/74
[2024-04-09] MEDS: PROTONIX IV 40 MG IV ×2 (07:42→20:22)
[2024-04-09] MEDS: OCEAN, SALINE MIST 1 SPRAYS NASAL ×2 (07:42→17:46)
[2024-04-09] MEDS: NSS (PRESERVATIVE FREE) 10 ML IV ×2 (07:43→20:21)
[2024-04-09] MEDS: DIOVAN 160 MG PO ×2 (07:44→10:08)
[2024-04-09] MEDS: LOPRESSOR 12.5 MG PO ×2 (07:45→20:22)
--- NOTE | 2024-04-09 09:57 | W.PN.HOSP.TC ---
Today's Communication/Plan
-
dispo planning to SNF
adjust Valsartan back to home dose 320 mg daily
Assessment / Plan
Assessment / Plan
HPI: 88-year-old female PMH HTN, p/w nosebleed and rectal bleeding. She was recently hospitalized in [place] for UTI and C. difficile.
According to DIL at bedside, pt developed nose bleed 4 days [employer], then rectal bleed the day [employer] AIR[employer]. Rectal bleed was bright red blood, associated with clots.
Pt had completed vancomycin for recent C diff colitis, and her stool was starting to get formed.
A/P:
# Acute blood loss anemia; due to rectal bleed, nose bleed and possible hemolytic anemia
s/p 3 units PRBC transfusion
Hgb today at 8.4
Follow Hgb
iron panel suggest ACD
# GIB with clot on admission
GIB appear to have resolved
# Epistaxis, resolved
Pt removed R nostril rhino rocket
ENT on board
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
noted indirect hyperbilirubinemia
retic count high at 6.1
haptoglobin < 10,
AMILCAR negative, hence no indication for steroid
Peripheral blood flow cytometry per heme
Echo this admission unrevealing: EF 60-65%, Aortic sclerosis without stenosis .
Of note, outside hospital flow cytometry and marrow biopsy results were unrevealing
LDH at 350,
Heme on board
s/p Vit K with improvement of INR from 2 to 1.6
# Hypokalemia
repleted and resolved
# Elevated LFT
monitor LFT
Hepatitis A/B/C serologies negative
Celiac panel negative.
CT AP with oral and IV contrast noted 1. Suspicion for a mild enterocolitis. 2. Slight nodularity of the liver contour raising concern for the early changes of cirrhosis.3. Mild abdominopelvic ascites.
GI on board
# Suspect dementia
Pt awake but not orientated
Informed family about outpt cognitive evaluation
# BL LE swelling, unclear duration
Echo unrevealing: EF 60-65%. Aortic sclerosis without stenosis
# HTN
Resumed Valsartan at [employer]CREW[employer] dose 320 mg daily
Added Lopressor 12.5 BID for concurrent tachycardia, HR better controlled
Hold HCTZ with hypokalemia
IV hydralazine PRN for SBP > 160
# Recent UTI and C diff colitis
DVT ppx: SCD
DNR DNI, confirmed with DIL at bedside
Dispo: PT OT recc SNF
DW RN
updated son/DIL on the phone 04/08
Anticipated Discharge: 24 - 48 hours
Subjective/Interval History
-
Date of Service: April 09, 2024
Objective Data
-
Labs:
Laboratory Results
04/09/24
04:26
WBC 7.0
Hgb 8.4 L
Hct 24.4 L
Plt Count 112 L
Sodium 138
Potassium 3.7
Chloride 108 H
Carbon Dioxide 25
BUN 11
Creatinine 0.5 L
Glucose 101 H
Calcium 8.2 L
Total Bilirubin 6.0 H
AST 90 H
ALT 41 H
Alkaline Phosphatase 119
Vital Signs:
Vital Signs
Temp Pulse Resp BP Pulse Ox
36.7 C 71 17 173/74 96
04/09/24 07:00 04/09/24 07:44 04/09/24 07:00 04/09/24 07:44 04/09/24 07:00
I&O
04/08/24 04/09/24 04/10/24
07:59 06:59 06:59
Intake Total
Balance
[2024-04-09 11:00] VITALS: BP 86/67
[2024-04-09 15:00] VITALS: BP 148/76
[2024-04-09] MEDS: OCEAN, SALINE MIST NASAL (15:05)
[2024-04-09 19:41] VITALS: BP 157/82
[2024-04-09] MEDS: OCEAN, SALINE MIST 50 SPRAYS NASAL (20:21)
[2024-04-09 23:10] VITALS: BP 163/82
[2024-04-10] VITALS (8 sets, daily range): BP systolic 130–154; BP diastolic 74–88; PULSE 58; O2SAT 96
[2024-04-10 06:55] LABS: Hematocrit 28.2 % (37.0-47.0); Hemoglobin 9.8 g/dL (12.0-16.0); Mean Corp Hgb Conc. 34.8 g/dL (33.0-37.0); Mean Corpuscular Hgb 33.7 pg (27.0-31.0); Mean Corpuscular Volume 96.9 fL (81.0-99.0); Mean Platelet Volume 9.8 fL (7.4-10.4); Platelet Count 126 10^3/uL (130-400); Red Blood Cell Count 2.91 10^6/uL (4.20-5.40); Red Cell Dist. Width 20.1 % (11.5-14.5); White Blood Cell Count 7.7 10^3/uL (4.8-10.8)
[2024-04-10 07:19] LABS: ALT (SGPT) 44 U/L (0-35); AST (SGOT) 96 U/L (14-36); Alkaline Phosphatase 148 U/L (38-126); Blood Urea Nitrogen 10 mg/dl (7-17); Calcium 8.7 mg/dl (8.4-10.2); Carbon Dioxide 24 mmol/L (22-30); Chloride 108 mmol/L (98-107); Direct Bilirubin 2.4 mg/dl (0.0-0.4); Estimated Creatinine Clearance 56 ml/min; Glucose 101 mg/dl (70-99); Potassium 3.8 mmol/L (3.5-5.1); Sodium 139 mmol/L (135-145); Total Bilirubin 6.3 mg/dl (0.2-1.3); Total Protein 6.3 g/dl (6.3-8.2); eGFR > 60.00
[2024-04-10] MEDS: PROTONIX IV 40 MG IV ×2 (07:44→20:32)
[2024-04-10] MEDS: NSS (PRESERVATIVE FREE) 10 ML IV ×2 (07:44→20:32)
[2024-04-10] MEDS: LOPRESSOR 12.5 MG PO ×2 (07:45→20:31)
[2024-04-10] MEDS: OCEAN, SALINE MIST 1 SPRAYS NASAL ×3 (07:45→20:32)
[2024-04-10] MEDS: DIOVAN 320 MG PO (07:45)
--- NOTE | 2024-04-10 09:32 | W.PN.HOSP.TC ---
Today's Communication/Plan
-
Discharge to short-term rehab when bed available
Assessment / Plan
Assessment / Plan
HPI: 88-year-old female PMH HTN, p/w nosebleed and rectal bleeding. She was recently hospitalized in [place] for UTI and C. difficile.
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 Rectal bleed was bright red blood, associated with clots.
Pt had completed vancomycin for recent C diff colitis, and her stool was starting to get formed.
A/P:
# Acute blood loss anemia; due to rectal bleed, nose bleed and possible hemolytic anemia
S/p 3 units PRBC transfusion
Hemoglobin has remained stable since 04/06, ranging from 8.4-8.8
Suspect 39.6 and 9.8 are inaccurate
Iron panel suggest ACD
Continue to trend hemoglobin
Discharge to short-term rehab when bed available
# GIB with clot on admission
GIB appear to have resolved
# Epistaxis, resolved
Pt removed R nostril rhino rocket
ENT on board
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
Noted indirect hyperbilirubinemia
Retic count high at 6.1
Haptoglobin < 10
AMILCAR negative, hence no indication for steroid
Peripheral blood flow cytometry per heme
Echo this admission unrevealing: EF 60-65%, Aortic sclerosis without stenosis .
Of note, outside hospital flow cytometry and marrow biopsy results were unrevealing
LDH at 350,
Heme on board
S/p Vit K with improvement of INR from 2 to 1.6
# Hypokalemia
Repleted and resolved
# Elevated LFT
Monitor LFT
Hepatitis A/B/C serologies negative
Celiac panel negative.
CT AP with oral and IV contrast noted 1. Suspicion for a mild enterocolitis. 2. Slight nodularity of the liver contour raising concern for the early changes of cirrhosis.3. Mild abdominopelvic ascites.
GI on board
# Suspected dementia
Pt awake but not orientated
Informed family about outpt cognitive evaluation
# BL LE swelling, unclear duration
Echo unrevealing: EF 60-65%. Aortic sclerosis without stenosis
# HTN
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
Added Lopressor 12.5 BID for concurrent tachycardia, HR better controlled
Hold HCTZ with hypokalemia
IV hydralazine PRN for SBP > 160
# Recent UTI and C diff colitis
DVT ppx: SCD
DNR DNI, confirmed with DIL at bedside
Dispo: PT OT recc SNF
Updated son/DIL on the phone 04/08
Total time spent to see the patient on the floor, examine the patient, review data and lab results, discuss treatment plan with patient, nursing staff around 36 minutes.
Physical Exam
General: No acute distress
HEENT: Normocephalic, Atraumatic, EOMI, MMM
Respiratory: Clear to Auscultation bilaterally
Cardiac: Normal S1/S2, Regular Rate and Rhythm
GI: Soft, Nontender, Nondistended, Normal Bowel Sounds
Extremities: No Clubbing, Cyanosis, or Edema
Neuro: Pleasantly confused
Psych: Calm, Cooperative
Anticipated Discharge: Within 24 hours
Subjective/Interval History
-
Date of Service: April 10, 2024
No more recurrence of rectal bleeding or epistaxis. Patient denies chest pain, denies shortness of breath. She feels well, and is eager for discharge. No fever, no vomiting.
Objective Data
-
Labs:
Laboratory Results
04/10/24
06:29
WBC 7.7
Hgb 9.8 L
Hct 28.2 L
Plt Count 126 L
Sodium 139
Potassium 3.8
Chloride 108 H
Carbon Dioxide 24
BUN 10
Creatinine 0.5 L
Glucose 101 H
Calcium 8.7
Total Bilirubin 6.3 H
AST 96 H
ALT 44 H
Alkaline Phosphatase 148 H
Vital Signs:
Vital Signs
Temp Pulse Resp BP Pulse Ox
98.3 F 71 16 148/78 94
04/10/24 07:34 04/10/24 07:34 04/10/24 07:34 04/10/24 07:34 04/10/24 07:34
I&O
04/09/24 04/10/24 04/11/24
06:59 06:59 06:59
Intake Total 1080 / 1080
Balance 1080 / 1080
[2024-04-10] MEDS: OCEAN, SALINE MIST NASAL (12:30)
--- NOTE | 2024-04-10 14:54 | CM ---
CM reviewed pt with Dr Mili duran for dc
Call with BONIFACIO/Sonja
SNF referrals sent out via [facility] is preference
Per admissions/[facility], may have bed available tomorrow
Discussion with nursing, she will trial pt off of med-sitter
Pt offered bed at [facility] as well
Pt will require BC auth
Outreach to PT/OT and updated evals completed for auth purposes
Discharge Disposition- SNF pending auth
[2024-04-11] MEDS: DIOVAN 320 MG PO (07:11)
[2024-04-11] MEDS: LOPRESSOR 12.5 MG PO ×2 (07:14→22:20)
[2024-04-11] MEDS: NSS (PRESERVATIVE FREE) 10 ML IV ×2 (07:14→22:21)
[2024-04-11] MEDS: OCEAN, SALINE MIST 1 SPRAYS NASAL ×2 (07:14→17:02)
[2024-04-11] MEDS: PROTONIX IV 40 MG IV ×2 (07:14→22:21)
[2024-04-11 07:26] LABS: Hematocrit 24.5 % (37.0-47.0); Hemoglobin 8.6 g/dL (12.0-16.0); Mean Corp Hgb Conc. 35.1 g/dL (33.0-37.0); Mean Corpuscular Hgb 34.3 pg (27.0-31.0); Mean Corpuscular Volume 97.6 fL (81.0-99.0); Mean Platelet Volume 10.1 fL (7.4-10.4); Platelet Count 127 10^3/uL (130-400); Red Blood Cell Count 2.51 10^6/uL (4.20-5.40); Red Cell Dist. Width 20.1 % (11.5-14.5); White Blood Cell Count 6.6 10^3/uL (4.8-10.8)
--- NOTE | 2024-04-11 07:41 | W.PN.HOSP.TC ---
Today's Communication/Plan
-
Discharge to short-term rehab when bed available
Assessment / Plan
Assessment / Plan
HPI: 88-year-old female PMH HTN, p/w nosebleed and rectal bleeding. She was recently hospitalized in [place] for UTI and C. difficile.
According to DIL at bedside, pt developed nose bleed 4 days [employer], then rectal bleed the day [employer]. Rectal bleed was bright red blood, associated with clots.
Pt had completed vancomycin for recent C diff colitis, and her stool was starting to get formed.
A/P:
# Acute blood loss anemia; due to rectal bleed, nose bleed and possible hemolytic anemia
S/p 3 units PRBC transfusion
Hemoglobin has remained stable since 04/06, ranging from 8.4-8.8
Suspect 9.6 and 9.8 are inaccurate
Iron panel suggest ACD
Continue to trend hemoglobin
Stable for discharge to short-term rehab when bed available
# GIB with clot on admission
GIB appears to have resolved
# Epistaxis, resolved
Pt removed R nostril rhino rocket
ENT on board
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
Noted indirect hyperbilirubinemia
Retic count high at 6.1
Haptoglobin < 10
AMILCAR negative, hence no indication for steroid
Peripheral blood flow cytometry per heme
Echo this admission unrevealing: EF 60-65%, Aortic sclerosis without stenosis .
Of note, outside hospital flow cytometry and marrow biopsy results were unrevealing
LDH at 350,
Heme on board
S/p Vit K with improvement of INR from 2 to 1.6
# Hypokalemia
Repleted and resolved
# Elevated LFT
Monitor LFT
Hepatitis A/B/C serologies negative
Celiac panel negative.
CT AP with oral and IV contrast noted 1. Suspicion for a mild enterocolitis. 2. Slight nodularity of the liver contour raising concern for the early changes of cirrhosis.3. Mild abdominopelvic ascites.
GI on board
# Suspected dementia
Pt awake but not orientated
Informed family about outpt cognitive evaluation
# BL LE swelling, unclear duration
Echo unrevealing: EF 60-65%. Aortic sclerosis without stenosis
# HTN
Resumed Valsartan at [employer] dose 320 mg daily
Added Lopressor 12.5 BID for concurrent tachycardia, HR better controlled
Hold HCTZ with hypokalemia
IV hydralazine PRN for SBP > 160
# Recent UTI and C diff colitis
DVT ppx: SCD
DNR DNI, confirmed with DIL at bedside
Dispo: PT OT recc SNF
Updated son/DIL on the phone 04/08
Total time spent to see the patient on the floor, examine the patient, review data and lab results, discuss treatment plan with patient, nursing staff around 35 minutes.
Physical Exam
General: No acute distress
HEENT: Normocephalic, Atraumatic, EOMI, MMM
Respiratory: Clear to Auscultation bilaterally
Cardiac: Normal S1/S2, Regular Rate and Rhythm
GI: Soft, Nontender, Nondistended, Normal Bowel Sounds
Extremities: No Clubbing, Cyanosis, or Edema
Neuro: Pleasantly confused
Psych: Calm, Cooperative
Anticipated Discharge: Today
Subjective/Interval History
-
Date of Service: April 11, 2024
Patient denies rectal bleeding. No epistaxis. No fever, no vomiting.
Objective Data
-
Labs:
Laboratory Results
04/11/24
06:59
WBC 6.6
Hgb 8.6 L
Hct 24.5 L
Plt Count 127 L
Vital Signs:
Vital Signs
Temp Pulse Resp BP Pulse Ox
98.2 F 84 16 130/74 95
04/10/24 22:30 04/10/24 22:30 04/10/24 22:30 04/10/24 22:30 04/10/24 22:30
I&O
04/10/24 04/11/24 04/12/24
06:59 06:59 06:59
Intake Total 1080 / 1080 900 / 900
Balance 1080 / 1080 900 / 900
[2024-04-11 08:02] VITALS: BP 143/89
--- NOTE | 2024-04-11 10:44 | CM ---
Addendum entered by ASHOK Wang 04/11/24 14:33:
Placed a call to patient's son, to obtain information for insurance as it was cut off after it scanned it so full number was not available. Patient's son stated that the number to call on the back of the card is, . Placed a call to and
call was answered by a public health representative named, Amber, who stated that [facility] [employer] [facility] all requests for skill authorization to [facility]. [phone]. Placed a call to [employer] and spoke with a public health representative named, Prasanna who stated that their
system is down and so everything has to be faxed (all clinical), to [phone]. Reference/pending auth was requested however Prasanna stated that they do not provide those on calls, only auths once a request has been approved. Called back and spoke
with another public health representative named, Evelyn, who confirmed that this is true and no pending auths are provided.
Faxed al clinical to number above.
On facesheet wrote: NPI for [facility] [id number] and Dr. Michelet Reid [id number] NPI for and NPI for attending at .
Will update Belinda in admissions upon any receipt of auth or communication from insurance.
Original Note:
Reviewed chart, placed a call to Belinda in admissions at [facility] who stated that she may have a bed for patient today and will check with her asset administrator. She stated that she will return call with confirmation.
Plan: Case management will continue to follow and assist with discharge planning. Hopeful bed at [facility] upon medical clearance.
[2024-04-11] MEDS: OCEAN, SALINE MIST NASAL (12:16)
[2024-04-11 15:06] VITALS: BP 134/62
[2024-04-11] MEDS: OCEAN, SALINE MIST 2 SPRAYS NASAL (22:20)
[2024-04-11 23:20] VITALS: BP 147/73
[2024-04-12 06:35] LABS: Hematocrit 27.7 % (37.0-47.0); Hemoglobin 9.5 g/dL (12.0-16.0); Mean Corp Hgb Conc. 34.3 g/dL (33.0-37.0); Mean Corpuscular Hgb 33.6 pg (27.0-31.0); Mean Corpuscular Volume 97.9 fL (81.0-99.0); Platelet Count 125 10^3/uL (130-400); Red Blood Cell Count 2.83 10^6/uL (4.20-5.40); Red Cell Dist. Width 19.9 % (11.5-14.5); White Blood Cell Count 6.9 10^3/uL (4.8-10.8)
[2024-04-12 07:18] VITALS: BP 112/71
[2024-04-12] MEDS: LOPRESSOR 12.5 MG PO ×2 (07:51→21:41)
[2024-04-12] MEDS: DIOVAN 320 MG PO (07:51)
[2024-04-12] MEDS: NSS (PRESERVATIVE FREE) 10 ML IV (07:51)
[2024-04-12] MEDS: PROTONIX IV 40 MG IV (07:52)
[2024-04-12] MEDS: OCEAN, SALINE MIST 2 SPRAYS NASAL ×2 (07:53→17:31)
--- NOTE | 2024-04-12 08:59 | W.PN.HOSP.TC ---
Today's Communication/Plan
-
Discharge to short-term rehab when authorization has been obtained.
Assessment / Plan
Assessment / Plan
HPI: 88-year-old female PMH HTN, p/w nosebleed and rectal bleeding. She was recently hospitalized in [place] for UTI and C. difficile.
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 Rectal bleed was bright red blood, associated with clots.
Pt had completed vancomycin for recent C diff colitis, and her stool was starting to get formed.
A/P:
# Acute blood loss anemia; due to rectal bleed, nose bleed and possible hemolytic anemia
S/p 3 units PRBC transfusion
Hemoglobin has remained stable since 04/06, ranging from 8.4-8.8
Suspect 9.5, 9.6 and 9.8 are inaccurate
Iron panel suggest ACD
Continue to trend hemoglobin
Stable for discharge to short-term rehab when authorization has been obtained
# GIB with clot on admission
GIB appears to have resolved
# Epistaxis, resolved
Pt removed R nostril rhino rocket
ENT on board
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
Noted indirect hyperbilirubinemia
Retic count high at 6.1
Haptoglobin < 10
AMILCAR negative, hence no indication for steroid
Peripheral blood flow cytometry per heme
Echo this admission unrevealing: EF 60-65%, Aortic sclerosis without stenosis .
Of note, outside hospital flow cytometry and marrow biopsy results were unrevealing
LDH at 350,
Heme on board
S/p Vit K with improvement of INR from 2 to 1.6
# Hypokalemia
Repleted and resolved
# Elevated LFT
Monitor LFT
Hepatitis A/B/C serologies negative
Celiac panel negative.
CT AP with oral and IV contrast noted 1. Suspicion for a mild enterocolitis. 2. Slight nodularity of the liver contour raising concern for the early changes of cirrhosis.3. Mild abdominopelvic ascites.
GI on board
# Suspected dementia
Pt awake but not orientated
Informed family about outpt cognitive evaluation
# BL LE swelling, unclear duration
Echo unrevealing: EF 60-65%. Aortic sclerosis without stenosis
# HTN
Resumed Valsartan at [employer] C[employer]IED INTERNETWORK EXPERT dose 320 mg daily
Added Lopressor 12.5 BID for concurrent tachycardia, HR better controlled
Hold HCTZ with hypokalemia
IV hydralazine PRN for SBP > 160
# Recent UTI and C diff colitis
DVT ppx: SCD
DNR DNI, confirmed with DIL at bedside
Dispo: PT OT recc SNF
Updated son/DIL on the phone 04/08
Total time spent to see the patient on the floor, examine the patient, review data and lab results, discuss treatment plan with patient, nursing staff around 35 minutes.
Physical Exam
General: No acute distress
HEENT: Normocephalic, Atraumatic, EOMI, MMM
Respiratory: Clear to Auscultation bilaterally
Cardiac: Normal S1/S2, Regular Rate and Rhythm
GI: Soft, Nontender, Nondistended, Normal Bowel Sounds
Extremities: No Clubbing, Cyanosis, or Edema
Neuro: Pleasantly confused
Psych: Calm, Cooperative
Anticipated Discharge: Today
Subjective/Interval History
-
Date of Service: April 12, 2024
No acute events. No more rectal bleeding or epistaxis. No fever, no vomiting.
Objective Data
-
Labs:
Laboratory Results
04/12/24
06:05
WBC 6.9
Hgb 9.5 L
Hct 27.7 L
Plt Count 125 L
Vital Signs:
Vital Signs
Temp Pulse Resp BP Pulse Ox
98.4 F 63 16 112/71 94
04/12/24 07:18 04/12/24 07:51 04/12/24 07:18 04/12/24 07:51 04/12/24 07:18
I&O
04/11/24 04/12/24 04/13/24
06:59 06:59 06:59
Intake Total 900 / 900 600 / 600
Balance 900 / 900 600 / 600
[2024-04-12 11:17] VITALS: BP 140/75; PULSE 65; O2SAT 95
--- NOTE | 2024-04-12 11:54 | CM ---
Addendum entered by Paul Kearney 04/12/24 16:14:
[facility] sales representative womens health confirmed that [facility] is out of network but pt has out of network benefits and an auth has been initiated. Reference ID #: [id number].
Requested pt's clinical faxed to provided fax number: [phone]
Awaiting for an auth. per brandon Godinez sales representative womens health an auth most likely will be available tomorrow, expedite review requested.
CM spoke to [facility] SN[facility] director of primary and she confirmed that pt is accepted for admission when an auth available.
D/C plan: [facility] . Awaiting for an auth.
Addendum entered by Paul Kearney 04/12/24 15:55:
CM received a phone call from pt's daughter in law Marsha and she stated she called pt's insurance and following SNFs are in network: [facility], [facility], [facility], [facility].
CM called [facility], spoke to sales representative womens health Angela and was told that pt's address in [place] and now this CM changed the address to [place]: [address] [address] and she is checking whether or not [facility] is in network.
Pt's daughter in law strongly requested [facility].
In [facility], [facility] womens [facility] is initiating an auth for SNF level of care at [facility] and at the same time checking confirmation regarding regarding whether or not [facility] is in network.
CM is on hold many times.
Awaiting for confirmation.
Addendum entered by Paul Kearney 04/12/24 14:41:
CM spoke to pt's son Edouard, explained the situation of in network benefits issues and pt's son stated he will call to pt's insurance, will request a list of SNFs that are in network, will go over the list and will let me know his preferences.
Original Note:
CM following re: discharge planning.
Reviewed pt's chart, met with pt.
Discharge order noted.
CM spoke to [facility] director of primary and she confirmed they do have a bed available and pt is accepted for admission when an auth is obtained.
CM called to provided phone number at [facility] [phone] and it was a wrong number and person who answered the phone expressed to me her very angry feelings.
CM called [facility] [phone] and [facility] out [phone]. CM called [facility], spoke to sales representative womens health Niki and she stated that [facility] is out of network and a request for SNF level of care at
[facility] has been denied due to facility is out of network. Per Niki, an auth for out of network SNF requires denial for in-network SNFs. LISSETT asked for a list of in-network SNF in [facility] and she stated she cannot tell me and a
phone call to [facility] needs to be made with NPI numbers of requested SNFs and they will check whether or not preferred SNF is in-network.
CM will discuss with pt and her family other SNFs and will check with [facility] whether or nt those preferred SNFs are in-network.
D/C plan: preferred SNF that is in network with [facility].
[2024-04-12] MEDS: OCEAN, SALINE MIST 1 SPRAYS NASAL (14:31)
[2024-04-12 15:10] VITALS: BP 133/82
[2024-04-12] MEDS: PROTONIX 40 MG PO (21:41)
[2024-04-12] MEDS: OCEAN, SALINE MIST NASAL (22:00)
[2024-04-12 23:15] VITALS: BP 147/87
[2024-04-13 07:49] VITALS: BP 150/73
[2024-04-13] MEDS: DIOVAN 320 MG PO (07:56)
[2024-04-13] MEDS: LOPRESSOR 12.5 MG PO (07:57)
[2024-04-13] MEDS: PROTONIX 40 MG PO (07:57)
[2024-04-13] MEDS: OCEAN, SALINE MIST 2 SPRAYS NASAL (07:57)
--- NOTE | 2024-04-13 08:52 | W.PN.HOSP.TC ---
Today's Communication/Plan
-
Discharge to rehab today
Assessment / Plan
Assessment / Plan
HPI: 88-year-old female PMH HTN, p/w nosebleed and rectal bleeding. She was recently hospitalized in [place] for UTI and C. difficile.
According to DIL at bedside, pt developed nose bleed 4 days TURKEY PICKER, then rectal bleed the day TURKEY PICKER. Rectal bleed was bright red blood, associated with clots.
Pt had completed vancomycin for recent C diff colitis, and her stool was starting to get formed.
A/P:
# Acute blood loss anemia; due to rectal bleed, nose bleed and possible hemolytic anemia
S/p 3 units PRBC transfusion
Hemoglobin has remained stable since 04/06, ranging from 8.4-8.8
Suspect 9.5, 9.6 and 9.8 are inaccurate
Iron panel suggest ACD
Continue to trend hemoglobin
Stable for discharge to short-term rehab when authorization has been obtained
# GIB with clot on admission
GIB appears to have resolved
# Epistaxis, resolved
Pt removed R nostril rhino rocket
ENT on board
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
Noted indirect hyperbilirubinemia
Retic count high at 6.1
Haptoglobin < 10
AMILCAR negative, hence no indication for steroid
Peripheral blood flow cytometry per heme
Echo this admission unrevealing: EF 60-65%, Aortic sclerosis without stenosis .
Of note, outside hospital flow cytometry and marrow biopsy results were unrevealing
LDH at 350,
Heme on board
S/p Vit K with improvement of INR from 2 to 1.6
# Hypokalemia
Repleted and resolved
# Elevated LFT
Monitor LFT
Hepatitis A/B/C serologies negative
Celiac panel negative.
CT AP with oral and IV contrast noted 1. Suspicion for a mild enterocolitis. 2. Slight nodularity of the liver contour raising concern for the early changes of cirrhosis.3. Mild abdominopelvic ascites.
GI on board
# Suspected dementia
Pt awake but not orientated
Informed family about outpt cognitive evaluation
# BL LE swelling, unclear duration
Echo unrevealing: EF 60-65%. Aortic sclerosis without stenosis
# HTN
Resumed Valsartan at TURKEY PICKER dose 320 mg daily
Added Lopressor 12.5 BID for concurrent tachycardia, HR better controlled
Blood pressure elevated, resume hydrochlorothiazide upon discharge
IV hydralazine PRN for SBP > 160
# Recent UTI and C diff colitis
DVT ppx: SCD
DNR DNI, confirmed with DIL at bedside
Dispo: PT OT recc SNF
Updated son/DIL on the phone 04/08
Physical Exam
General: No acute distress
HEENT: Normocephalic, Atraumatic, EOMI, MMM
Respiratory: Clear to Auscultation bilaterally
Cardiac: Normal S1/S2, Regular Rate and Rhythm
GI: Soft, Nontender, Nondistended, Normal Bowel Sounds
Extremities: No Clubbing, Cyanosis, or Edema
Neuro: Pleasantly confused
Psych: Calm, Cooperative
Anticipated Discharge: Today
Subjective/Interval History
-
Date of Service: April 13, 2024
No acute events overnight. No more rectal bleeding, no recurrence of epistaxis. No fever, no vomiting. Patient is eager for discharge.
Objective Data
-
Labs:
Laboratory Results
04/13/24
06:00
WBC Pending
Hgb Pending
Hct Pending
Plt Count Pending
Vital Signs:
Vital Signs
Temp Pulse Resp BP Pulse Ox
98 F 70 18 150/73 94
04/13/24 07:49 04/13/24 07:56 04/13/24 07:49 04/13/24 07:56 04/13/24 07:49
I&O
04/12/24 04/13/24 04/14/24
06:59 06:59 06:59
Intake Total 600 / 600 540 / 540
Balance 600 / 600 540 / 540
[2024-04-13 09:50] VITALS: PULSE 71; O2SAT 98
[2024-04-13 13:00] VITALS: BP 140/79; PULSE 67; O2SAT 97
--- NOTE | 2024-04-13 13:10 | CM ---
Addendum entered by Tracy Boyd 04/13/24 13:35:
4:30 p.m. ambulance transport, updated son, updated [facility].
Original Note:
[facility] reviewed chart, [phone], patient auth approved. Auth # [id number], approved skilled level 1, 04/13-04/26, fax reviews to [phone], updated Belinda at [facility] Admissions. Covid test required prior to discharge.
Patient seen in room, discussed plan to discharge to [facility]. Phone call to patients sonEdouard, confirmed patient will need ambulance transport. IMM verbally reviewed, agreeable to discharge, placed in chart. CM will continue to follow for all
discharge planning needs.
Plan; [facility] SNF, ambulance transport.
Report: [phone]
[2024-04-13] MEDS: OCEAN, SALINE MIST NASAL (14:31)
[2024-04-13 15:04] VITALS: BP 150/74
[2024-04-13 15:09] LABS: COVID-19 Antigen Negative (Negative)
--- NOTE | 2024-04-13 16:50 | W.DCSUMMARY ---
Discharge Summary
Discharge Data
Date of Admission: 04/03/24
Date of Discharge: 04/13/24
-
Pending Results: No
Hospital Course
Discharge diagnosis:
Acute blood loss anemia
Gastrointestinal bleed
Epistaxis
Possible hemolytic anemia
Hypokalemia
Liver cirrhosis on imaging
Coagulopathy
Elevated liver function test
Suspected dementia
Bilateral lower extremity edema
Essential hypertension
Recent urinary tract infection and Clostridium difficile infection
Consults: GI, hematology, ENT
CT abd/pelvis:
1. Suspicion for a mild enterocolitis.
2. Slight nodularity of the liver contour raising concern for the early changes of cirrhosis.
3. Mild abdominopelvic ascites.
4. Colonic diverticulosis.
5. Small bilateral pleural effusions.
Hospital course:
88-year-old female with a past medical history of hypertension and cognitive impairment was admitted for acute blood loss anemia secondary to epistaxis and rectal bleeding. Patient was seen in conjunction with ENT, and was treated with a Rhino
Rocket. Rhino Rocket was removed by the patient, she did not have any recurrence of epistaxis.
Patient was seen in conjunction with GI for melena and hematochezia. Her CT scan of the abdomen was suspicious for mild enterocolitis, ascites, colonic diverticulosis. GI discussed with patient's son regarding endoscopy/colonoscopy, who does not
feel patient can tolerate the prep. GI recommends monitoring the hemoglobin.
Patient's hemoglobin was 6.1 upon admission. She received a total of 3 units of packed red blood cells. Her hemoglobin improved to 8.8 posttransfusion, and remained stable at 8.6.
Patient was seen in conjunction with hematology for workup of her anemia. Patient had an elevated INR of 2.05 upon admission secondary to coagulopathy, likely from liver cirrhosis. She received vitamin K, and her INR improved to 1.63. Outside
hospital flow cytometry and marrow biopsy results were unrevealing. Patient's haptoglobin was less than 10, reticulocyte count high at 6.1, AMILCAR was negative. There was no indication for steroids.
Patient has cognitive impairment suspicious for dementia. She has been referred to outpatient neuropsychiatric testing for dementia.
Patient did not have any recurrence of her epistaxis or GI bleed. Her hemoglobin was monitored, and remained stable posttransfusion. She is medically stable for discharge to short-term rehab. She needs to follow-up with her primary care doctor in
1 week, and neuropsychiatry in the office in 2-3 weeks.
Disposition: Short-term rehab
Discharge planning: Required 42 minutes
Discharge Plan
-
Patient Disposition: Halfway/SNF
Discharge Diagnosis/Procedures: Acute blood loss anemia, epistaxis, rectal bleeding, hypokalemia, early liver cirrhosis on imaging, suspected dementia
Condition: Fair
Diet: Low Fat and Low Cholesterol
Activity: As tolerated
Activity Restrictions/Additional Instructions:
Please follow-up with Dr. Dillon Kurtz for neuropsychiatric testing for dementia.
Please follow-up with your primary care doctor 1 week after you leave rehab.
Please follow-up with GI in the office for workup of your cirrhosis.
Referrals:
Dillon Kurtz, PSY [Specified Professional Personl] - in two to three weeks
PRIVATE,PHYSICIAN [Family Provider] - in one week
Brenda Spence MD [Active] - in three to four weeks
Prescriptions:
New
metoprolol tartrate 25 mg Tablet
12.5 mg PO BID Qty: 0 0RF
pantoprazole 40 mg tablet,delayed release (DR/EC)
40 mg PO DAILY Qty: 30 0RF
Continued
valsartan-hydrochlorothiazide 320-12.5 mg Tablet
1 tab PO DAILY
acetaminophen [Tylenol] 325 mg Tablet
650 mg PO Q6HPRN PRN (Reason: headaches)
hydroxyzine pamoate 50 mg Capsule
50 mg PO BIDPRN PRN (Reason: allergies)
therapeutic multivitamin Tablet
1 tab PO DAILY
benzonatate 100 mg Capsule
100 mg PO BIDPRN PRN (Reason: cough)
vitamin B complex Tablet
1 tab PO DAILY
magnesium oxide 400 mg magnesium Tablet
400 mg PO DAILY
Discharge Orders:
Discharge Patient (As Directed); Ordered 04/11/24
Ordered By: Alonzo Maurer
Discharge Date and Time
Discharge Date/Time: 04/13/24 18:45
Print Language: MOHAWK
== END 2024-04-13 18:45 | DRG 378 ==
LOC: 3 WEST ACU 08:28
PROVIDERS: Emergency Medicine; Internal Medicine Gastroenterology; Nurse Practitioner Family; Nurse Practitioner Gerontology; ADMITTING PHYSICIAN Internal Medicine; ATTENDING PHYSICIAN Family Medicine; CONSULT PHYSICIAN Internal Medicine Gastroenterology; CONSULT PHYSICIAN Internal Medicine Hematology & Oncology; EMERGENCY PHYSICIAN Emergency Medicine; OTHER PHYSICIAN Otolaryngology
PROC: 30233N1 Transfusion of Nonautologous Red Blood Cells into Peripheral Vein, Percutaneous Approach (ICD-10-PCS; 2024-04-03)
DX: K62.5 Hemorrhage of anus and rectum (principal); D62 Acute posthemorrhagic anemia; N39.0 Urinary tract infection, site not specified; E87.6 Hypokalemia; I10 Essential (primary) hypertension; Z66 Do not resuscitate; F03.90 Unspecified dementia, unspecified severity, without behavioral disturbance, psychotic disturbance, mood disturbance, and anxiety
CPT/HCPCS: 74177; 80053; 82140; 82248; 82607; 82728; 82746; 82784; 83010; 83516; 83540; 83550; 83615; 83735; 85014; 85018; 85025; 85027; 85045; 85610; 85730; 86231; 86706; 86709; 86803; 86850; 86880; 86900; 86901; 86920; 87045; 87046; 87077; 87324; 87328; 87329; 87340; 87427; 87449; 87811; 89055; 92610; 93306; 97110; 97116; 97163; 97167; 97530; 97535; 99291; P9016; Q9967

== ENCOUNTER → 2024-06-05 13:48 | Outpatient (REF) | payer OTHER, SELFPAY | LOC: HWRAD 13:48 | PROVIDERS: ATTENDING PHYSICIAN Student in an Organized Health Care Education/Training Program | DX: R05.1 Acute cough (principal) | CPT/HCPCS: 71046 ==

== ENCOUNTER 2024-06-22 19:26 | Inpatient (IN) | payer OTHER, SELFPAY ==
[2024-06-22] VITALS (8 sets, daily range): BP systolic 127–159; BP diastolic 53–80; BMI 30.1; BMI 30.4
[2024-06-22 13:59] LABS: % Basophils 0.8 % (0-2); % Eosinophils 5.3 % (0-6); % Immature Granulocytes 0.2 % (0-0.5); % Lymphocytes 18.3 % (20.5-51.1); % Monocytes 9.5 % (1.7-9.3); % Neutrophils 65.9 % (42.2-75.2); Absolute Eosinophils 0.3 10^3/uL (0-0.7); Absolute Lymphocytes 0.9 10^3/uL (1.2-3.4); Absolute Monocytes 0.5 10^3/uL (0.1-0.6); Absolute Neutrophils 3.2 10^3/uL (1.4-6.5); Hematocrit 27.6 % (37.0-47.0); Hemoglobin 9.5 g/dL (12.0-16.0); Mean Corp Hgb Conc. 34.4 g/dL (33.0-37.0); Mean Corpuscular Hgb 34.8 pg (27.0-31.0); Mean Corpuscular Volume 101.1 fL (81.0-99.0); Mean Platelet Volume 10.1 fL (7.4-10.4); Nucleated Red Blood Cells % 0 %; Platelet Count 102 10^3/uL (130-400); Red Blood Cell Count 2.73 10^6/uL (4.20-5.40); Red Cell Dist. Width 14.5 % (11.5-14.5); White Blood Cell Count 4.9 10^3/uL (4.8-10.8)
[2024-06-22 14:14] LABS: Blood Urea Nitrogen 28 mg/dl (7-17); Chloride 109 mmol/L (98-107); Glucose 117 mg/dl (70-99); Potassium 4.1 mmol/L (3.5-5.1); Sodium 140 mmol/L (135-145); eGFR > 60.00
[2024-06-22 14:15] LABS: ALT (SGPT) 30 U/L (0-35); AST (SGOT) 65 U/L (14-36); Albumin 3.5 g/dl (3.5-5.0); Alkaline Phosphatase 358 U/L (38-126); Carbon Dioxide 22 mmol/L (22-30); Total Bilirubin 4.8 mg/dl (0.2-1.3)
--- NOTE | 2024-06-22 15:29 | ED.GENMED ---
History of Present Illness
General
Chief Complaint: Change in Mental Status
Time Seen by Provider: 06/22/24 15:29
History of Present Illness
History of Present Illness:
TIME OF INITIAL ENCOUNTER: 3:30 PM
HPI: The patient has a history of dementia with MoCA score of 8 at baseline and had a normal conversation with the [id number]-[id number] yesterday. Today, the patient had a major change in mental status. The oxcmnncp-mt-bpm states that she has never
seen her like this but was concerned about a urinary tract infection as she has had urinary tract infection in the past. She states that she has been drinking plenty of fluid yesterday. The patient is a very unreliable historian. Siglxqim-lz-gsk
was also concern for back pain however the patient has no complaints of back pain currently but again is an unreliable historian.
EXAM:
GENERAL: In no distress
HEENT: Moist oral mucosa mild scleral icterus
CARDIOVASCULAR: No murmurs, normal heart rate, regular rhythm, No chest wall tenderness
PULMONARY: No respiratory distress, breath sounds are clear and equal
ABDOMEN: Soft with no peritoneal signs, no tenderness
NEUROLOGIC: Excellent strength all extremities, no coordination deficits
BACK: No midline T or L-spine tenderness, no CVA tenderness
PSYCHIATRIC: Appropriate mental status, normal insight and judgement
EXTREMITIES: Nontender, no edema, moves all extremities equally
SKIN: No rash, no lesions
NUMBER AND COMPLEXITY OF PROBLEMS ADDRESSED AT THE ENCOUNTER
� Chronic conditions affecting care: Suspected dementia, high blood pressure
� Acute Exacerbation and/or Progression of Chronic Illness:
� Differential Diagnosis includes: Progression of dementia, delirium, UTI, intracranial pathology, electrolyte abnormality, hepatic encephalopathy
AMOUNT AND/OR COMPLEXITY OF DATA TO BE REVIEWED AND ANALYZED
� I performed an independent evaluation of and my interpretation is:
EKG:
CT: CT head negative
X-rays:
Laboratory Studies: White count normal, hemoglobin 9.5, BUN 28, creatinine 0.5, total bili 4.8
Other:
� Review of other/old records: Last hemoglobin was 9.5, where total bili's have been higher last year. CT of the abdomen pelvis from nearly 3 months ago suspected early changes of cirrhosis with mild ascites.
� Clinical information was obtained by an independent historian: I spoke to [id number] at bedside
� Prescriptions/Medications Considered but not given:
� Further testing considered but not performed:
RISK OF COMPLICATIONS AND/OR MORBIDITY OR MORTALITY OF PATIENT MANAGEMENT
� Social determinants of health affecting care: Lives at home
� Discussion with other providers: Hospitalist, Dr. Alcaraz, for admission at 5:33 PM
� Escalation of care including admission/observation vs risk of discharge considered: As patient's rfuamspd-dz-awk reports a rather significant change in mental status, significant medical workup was pursued but no clear obvious
sign of abnormality other than questionable signs of UTI�ordered Rocephin.
ANY OTHER UPDATES:
Regarding back pain, the patient did have a CAT scan 2 months ago of the abdomen pelvis that was relatively unremarkable with no report of any lumbar spine abnormality.
Urinalysis shows at least questionable signs of an infection. However the patient has normal white count and temperature however she has markedly altered per [id number]-[id number]. Placed on Rocephin and she was given IV fluids.
Past History
Past History
ED Past Medical History: HTN and Other (Anemia, fatty liver)
ED Past Surgical History: Appendectomy and Gynecological (Hysterectomy)
Social History
Tobacco: Non-smoker
Alcohol: None
Drug: None
Living: with family
Phy Exam
Physical Exam
Physical Exam:
See HPI
Course
Orders/Labs/Results
Orders:
Orders
06/22/24 13:35
Complete Blood Count/With Diff Urgent
Comprehensive Metabolic Panel Urgent
06/22/24 15:31
Straight cath- Treatment ONCE
0.9% Sodium Chloride 500 ml [Nss] 500 ml IV BOLUS
06/22/24 15:40
CT Head W/o Iv Contrast Urgent
Comment:
Reason For Exam: alt ms
06/22/24 15:45
Ammonia Urgent
06/22/24 16:17
Urinalysis Reflex To Culture Urgent
Date Specimen was Collected: 06/22/24
Time Specimen was Collected: 16:16
Urine Microscopic Reflex Cult Urgent
Urine Culture Urgent
THELMA Source: U
Specimen Description:
Date Specimen was Collected: 06/22/24
Time Specimen was Collected: 16:16
06/22/24 17:30
CefTRIAXone [Rocephin] 1,000 mg IV NOW STA
Abnormal Lab Results
06/22/24 06/22/24 06/22/24
13:35 15:45 16:17
RBC 2.73 L 10^6/uL
(4.20-5.40)
Hgb 9.5 L g/dL
(12.0-16.0)
Hct 27.6 L %
(37.0-47.0)
MCV 101.1 H fL
(81.0-99.0)
MCH 34.8 H pg
(27.0-31.0)
Plt Count 102 L 10^3/uL
(130-400)
Absolute Lymphs (auto) 0.9 L 10^3/uL
(1.2-3.4)
Lymphocytes % 18.3 L %
(20.5-51.1)
Monocytes % 9.5 H %
(1.7-9.3)
Chloride 109 H mmol/L
(98-107)
BUN 28 H mg/dl
(7-17)
Creatinine 0.5 L mg/dL
(0.6-1.0)
Glucose 117 H mg/dl
(70-99)
Total Bilirubin 4.8 H mg/dl
(0.2-1.3)
AST 65 H U/L
(14-36)
Alkaline Phosphatase 358 H U/L
(38-126)
Ammonia 31 H umol/L
(9-30)
Urine Nitrite (Reflex) Positive A
(Negative)
Urine Bilirubin 1+ A
(Negative)
Leukocyte Esterase Rfl 1+ A
(Negative)
Urine WBC (Reflex) 11-15 A /HPF
(0-5)
Urine Bacteria (Reflex) Many A
(Negative)
06/22/24 13:35
06/22/24 13:35
Vital Signs
Initial and Last Documented VS:
Initial Vital Signs
Temp Pulse Resp BP Pulse Ox
36.6 C 69 16 129/61 98
06/22/24 13:24 06/22/24 13:24 06/22/24 13:24 06/22/24 13:24 06/22/24 13:24
Last Documented Vital Signs
Temp Pulse Resp BP Pulse Ox
36.6 C 68 17 140/72 98
06/22/24 13:24 06/22/24 16:00 06/22/24 16:00 06/22/24 15:47 06/22/24 13:24
*Critical Care Note
Total Time (30-74mins, 75-104mins- exclusive of procedures): Not Applicable
ED Attending Note
-
Portions of this chart may have been created with voice recognition software.� Occasional wrong word or��sound alike� substitutions may have occurred due to the inherent limitations of voice recognition software.
Discharge Plan
Departure
Patient Disposition: Admit
Date of Disposition: 06/22/24
Time of Disposition: 17:33
Presentation/result/management discussed w/ accepting MD/DO: Hospitalist
Patient with high blood pressure during this ER visit?: Yes
Discharge Problem:
Acute alteration in mental status
Prescriptions:
No Action
valsartan-hydrochlorothiazide 320-12.5 mg Tablet
1 tab PO DAILY
acetaminophen [Tylenol] 325 mg Tablet
650 mg PO Q6HPRN PRN (Reason: headaches)
hydroxyzine pamoate 50 mg Capsule
50 mg PO BIDPRN PRN (Reason: allergies)
therapeutic multivitamin Tablet
1 tab PO DAILY
benzonatate 100 mg Capsule
100 mg PO BIDPRN PRN (Reason: cough)
vitamin B complex Tablet
1 tab PO DAILY
magnesium oxide 400 mg magnesium Tablet
400 mg PO DAILY
metoprolol tartrate 25 mg Tablet
12.5 mg PO BID Qty: 0 0RF
pantoprazole 40 mg tablet,delayed release (DR/EC)
40 mg PO DAILY Qty: 30 0RF
Referrals:
Salomon Park MD, Resident [Family Provider] -
Interventions
Interventions:
*Risk Screen - Suicide Last Done: 06/22/24 13:24
*Neglect/Abuse Screening Last Done: 06/22/24 13:24
ED- Neurological Assessment Last Done: 06/22/24 16:03
Discharge Date and Time
Print Language: OCCITAN
[2024-06-22] MEDS: NSS 500 IV (15:59)
[2024-06-22 16:20] LABS: Ammonia 31 umol/L (9-30)
[2024-06-22 16:34] LABS: Urine Albumin Trace (Neg - Trace); Urine Bilirubin 1+ (Negative); Urine Character Very Cloudy (Clear); Urine Color Yellow; Urine Glucose Negative (Negative); Urine Ketone Negative (Negative); Urine Leukocyte 1+ (Negative); Urine Nitrite Positive (Negative); Urine Occult Blood Negative (Negative); Urine Specific Gravity 1.015 (<1.030); Urine Urobilinogen 1+ (Neg - 1+)
[2024-06-22 16:54] LABS: Urine Bacteria Many (Negative); Urine Mucus Few; Urine Red Blood Cell 0-2 /HPF (0-2); Urine Squamous Cell 0-2 /LPF (Few)
--- NOTE | 2024-06-22 18:20 | HPS.HSE ---
Family Physician
-
Family Physician: Salomon Park MD, Resident
Chief Complaint
-
Altered mental stataus
History of Present Illness
88 female history of hypertension, dementia, macrocytic anemia, chronic thrombocytopenia, cirrhosis that for acute onset change in mental status that was noted around 11 AM with word repetition and disorientation that started around 3 AM. Daklevere
[id number] was at bedside who provided collateral information as Ms. Arzola has dementia and is confused with continued word repetition of Hello Sweetmort, please do not hurt me.
Per uoravzzk-dp-njy she started rocking about 1 week ago, tremors in the upper extremity started over the last couple days. Then overnight around 3 AM while going to the bathroom she was disoriented. However disorientation continued and at 11 AM
with word repetition. No nausea or vomiting. Did complain of some back pain initially but not anymore. Additionally per daughter potentially had hepatitis C more than 50 years ago.
In the ED found to have macrocytic anemia with a platelet count of 102, alk phos 358, AST 65, T. bili 4.8, and ammonia level 31. Imaging which was a head CT no acute intracranial abnormality
Medical History
Past Medical History
Past Medical History: Reports HTN
Past Surgical History: Reports Gynocological and Orthopedic
Social History
Unable to obtain full social history at this time due to: Dementia
Family History
Family History: Other
Allergies / Home Medications
Allergies reflects when Allergies were last updated in [facility].
Home Medications with original date entered in [facility]
Allergy/Medication List:
Allergies
Allergy/AdvReac Type Severity Reaction Status Date / Time
No Known Allergies Allergy Verified 06/22/24 13:28
Home Medications
magnesium oxide 400 mg PO DAILY Electrolyte Repletion 04/03/24
metoprolol tartrate 25 mg tablet 12.5 mg (1/2 x 25 mg) PO BID #0 tabs 04/11/24
pantoprazole 40 mg tablet,delayed release 40 mg PO DAILY #30 tabs 04/11/24
amlodipine 2.5 mg tablet (Norvasc) 2.5 mg PO DAILY 06/22/24
ibuprofen 200 mg tablet (Advil) 200 mg PO Q6HPRN PRN back pains 06/22/24
valsartan 320 mg tablet 320 mg PO DAILY 06/22/24
Review of Systems
-
Unable to obtain full review of systems at this time due to: Dementia
Physical Exam
Vital Signs
Vital Signs
Temp Pulse Resp BP Pulse Ox
97.8 F 68 17 140/72 98
06/22/24 13:24 06/22/24 16:00 06/22/24 16:00 06/22/24 15:47 06/22/24 13:24
Physical Exam
General: Other (Confused, word repetition)
Laboratory Results
-
06/22/24 13:35
06/22/24 13:35
Laboratory Results
Total Bilirubin 4.8 mg/dl (0.2-1.3) H 06/22/24 13:35
AST 65 U/L (14-36) H 06/22/24 13:35
ALT 30 U/L (0-35) 06/22/24 13:35
Alkaline Phosphatase 358 U/L (38-126) H 06/22/24 13:35
Impression/Plan
-
Confused, word repetition
Scleral icterus
MMM dry mucous membranes, left tongue lateral bruise
No JVD
CTABL
RRR, S1/S2
Soft, tender, nondistended, bowel sounds active
Warm, Dry, Noted asterixis/tremors bilateral upper extremity
Awake
Confused
Toxic metabolic encephalopathy in the setting of dementia. Differential diagnosis of acuity likely hepatic encephalopathy versus UTI
-Check B12 TSH folate
-Check hepatitis C
-Check MRI r/o CVA, EEG r/o subclinical seizure
-Start lactulose, goal 3-5 bms
-Start Rocephin
-Follow-up urine culture
Cirrhosis
-Start lactulose
-Consult GI
?Ascites on exam
-Follow-up on abdominal ultrasound
-If positive consult IR for paracentesis with fluid analysis
Transaminitis
-Check coags
-Check abdominal ultrasound
Macrocytic anemia without blood loss, chronic
-Check B12 folate
Chronic thrombocytopenia
-B12 folate likely related to chronic liver disease
Hypertension
Continue amlodipine metoprolol valsartan
If hypotensive will need to hold
DVT PPX
SCD, unitl coags comes back if inr <2 and plt >100 will start hsq
[2024-06-22] MEDS: ROCEPHIN 1000 MG IV (18:37)
[2024-06-22 19:54] LABS: Hepatitis C Antibody Negative (Negative)
[2024-06-22 20:13] LABS: Folate 11.7 ng/ml (2.76-20)
[2024-06-22] MEDS: DUPHALAC/CHRONULAC 20 GRAMS PO (20:40)
[2024-06-22] MEDS: D5/0.45%NACL 1000 IV (20:40)
[2024-06-22] MEDS: LOPRESSOR 12.5 MG PO (22:44)
[2024-06-23 00:50] LABS: INR 1.74; PT 20.9 Sec (11.4-14.6)
[2024-06-23 00:51] LABS: APTT 46.1 Sec (23.4-35.0)
[2024-06-23 01:15] LABS: Creatine Phosphokinase 83 U/L (30-135); Iron 201 ug/dl (37-170)
[2024-06-23 01:23] LABS: NT-proBNP 719 pg/ml
[2024-06-23 01:24] LABS: Percent Saturation 95 % (20-50); Total Iron Binding Capacity 210 ug/dl (265-497)
[2024-06-23 01:47] LABS: TSH 3.95 uIU/ml (0.47-4.68)
[2024-06-23 02:06] LABS: Vitamin B12 979 pg/ml (239-931)
[2024-06-23] MEDS: ZOFRAN ODT (ORALLY DISINTEGRATING) 2 MG PO (02:34)
--- NOTE | 2024-06-23 02:41 | PTCARENOTE ---
Addendum entered by Cece Verma RN 06/23/24 06:09:
No further nausea noted.
Original Note:
Pt c/o nausea. Zofran 2mg po given as ordered. Will continue to monitor.
[2024-06-23 07:00] VITALS: BP 143/66
[2024-06-23 08:15] LABS: Hematocrit 22.7 % (37.0-47.0); Hemoglobin 8.3 g/dL (12.0-16.0); Mean Corp Hgb Conc. 36.6 g/dL (33.0-37.0); Mean Corpuscular Hgb 35.9 pg (27.0-31.0); Mean Corpuscular Volume 98.3 fL (81.0-99.0); Red Blood Cell Count 2.31 10^6/uL (4.20-5.40); Red Cell Dist. Width 14.5 % (11.5-14.5); White Blood Cell Count 3.8 10^3/uL (4.8-10.8)
--- NOTE | 2024-06-23 08:21 | VNURNOTE ---
Chart reviewed. [facility] PT, OT, CMS EXPERT. Will continue to follow hospital course and DC plans.
[2024-06-23 08:27] LABS: ALT (SGPT) 26 U/L (0-35); AST (SGOT) 54 U/L (14-36); Albumin 2.8 g/dl (3.5-5.0); Alkaline Phosphatase 220 U/L (38-126); Blood Urea Nitrogen 17 mg/dl (7-17); Calcium 8.5 mg/dl (8.4-10.2); Carbon Dioxide 23 mmol/L (22-30); Chloride 110 mmol/L (98-107); Estimated Creatinine Clearance 53 ml/min; Glucose 108 mg/dl (70-99); Potassium 3.6 mmol/L (3.5-5.1); Sodium 137 mmol/L (135-145); Total Bilirubin 5.6 mg/dl (0.2-1.3); Total Protein 6.1 g/dl (6.3-8.2); eGFR > 60.00
[2024-06-23 08:43] LABS: Mean Platelet Volume 10.1 fL (7.4-10.4); Platelet Count 84 10^3/uL (130-400)
[2024-06-23] MEDS: LOPRESSOR 12.5 MG PO ×2 (09:35→20:42)
[2024-06-23] MEDS: MAG-TAB SR 84 MG PO (09:36)
[2024-06-23] MEDS: PROTONIX 40 MG PO (09:36)
[2024-06-23] MEDS: DUPHALAC/CHRONULAC 20 GRAMS PO (09:36)
[2024-06-23] MEDS: DIOVAN 320 MG PO (09:36)
[2024-06-23] MEDS: NORVASC 2.5 MG PO (09:36)
--- NOTE | 2024-06-23 12:03 | CON.GI ---
Addendum entered and electronically signed by Inder Henry MD 06/23/24 15:59:
I saw and examined the patient.
The FREIGHT UNLOADER or PA's note was reviewed and I agree with the note.
Comment: 88yo female presents with change in MS. Per FREIGHT UNLOADER, family reports recent decline while living in [place] and recently admitted for UTI, C diff and elevated NH3 up to 113. Imaging suggests cirrhosis and also pt has low plt. Moved to [place] and
admitted March with epistaxis, seen in f/u with GI and set up for EGD for anemia and variceal screening. No EtOH. Hep B/C negative. History limited as pt is confused. UCx positive E coli.
Recommendations:
Rx UTI, which may be contributing to acute MS change
Cont lactulose daily. FREIGHT UNLOADER discussed low dose to start with to avoid getting up at night and risk of falls. We can titrate up if needed
MS change may be more due to UTI and dementia, but will continue with daily lactulose given elevated NH3 and cirrhosis
Would not initiate diuretics at this point with MS change
Abdominal tenderness on exam- will follow with UTI rx. If persists/worsens, check CT
Original Note:
Consultation
-
Date/Time Consultation Requested: 06/22/24 181
Date/Time Consultation Performed: 06/23/24 1320
Requesting Provider: Wojciech Diallo MD
Performing Provider: KALIE Kennedy, Inder Henry MD
Reason for Consultation: confusion
Medical History
Chief Complaint / HPI
Chief Complaint: confusion
History of Present Illness:
Pt is a 88yo presents with hx HTN, dementia, prior C-diff, UTI primary medical care in [place] where she lived for years. Family noted decline over several months and patient was noted with admission in [place] with UTI, c-diff, and elevated
ammonia level up to 113. She then moved to [place] with family and was admitted in March with epistaxis, anemia, GI bleed, with noted cirrhosis on imaging with LE edema, coagulopathy, elevated LFT's, and thrombocytopenia. She was seen outpatient and
due for follow up EGD in August with Dr. Spence and serology work up that is pending to be completed. Per family no hx ETOH use but patient would often self medicate with large dose of vitamin supplement. She did possible have hepatitis in past
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 She currently admits to vague abdominal pain with limited abdominal exam but denies dysphagia, GERD, diarrhea, constipation, or rectal bleeding with some change in bowel habits over last week
per family. Unsure about prior EGD or colonoscopy but due for EGD in August.
Past Medical History
Past Medical History: HTN, Psychiatric (dementia ) and Other (macrocytic anemia, thrombocytopenia, cirrrhosis, c-diff, )
Past Surgical History: Gynecological and Orthopedic
Social History
Tobacco: Non-Smoker
Alcohol: None
Drug: None
Living: With Family
Employment: Retired
Family History
Family History: Reviewed & Not Pertinent
Allergies / Home Medications
Allergy/AdvReac Type Severity Reaction Status Date / Time
No Known Allergies Allergy Verified 06/22/24 13:28
�Medication �Instructions �Recorded
magnesium oxide 400 mg PO DAILY Electrolyte 04/03/24
Repletion
metoprolol tartrate 25 mg tablet 12.5 mg (1/2 x 25 mg) PO BID #0 04/11/24
tabs
pantoprazole 40 mg tablet,delayed 40 mg PO DAILY #30 tabs 04/11/24
release
amlodipine 2.5 mg tablet (Norvasc) 2.5 mg PO DAILY Blood Pressure 06/22/24
ibuprofen 200 mg tablet (Advil) 200 mg PO Q6HPRN PRN back pains 06/22/24
valsartan 320 mg tablet 320 mg PO DAILY Blood Pressure 06/22/24
Review of Systems
-
Unable to obtain full review of systems at this time due to: Dementia (with confusion)
History Source: Patient and Family
Constitutional: Reports Fatigue
EENT: Reports No Symptoms
Respiratory: Reports No Symptoms
Cardiac: Reports No Symptoms
Abdomen/GI: Reports Abdominal Pain
: Reports No Symptoms
Musculoskeletal: Reports No Symptoms
Skin: Reports No Symptoms
Neurological: Reports Weakness and Other (confusion)
Vital Signs
Temp Pulse Resp BP Pulse Ox
98 F 78 19 143/66 98
06/23/24 07:00 06/23/24 07:00 06/23/24 07:00 06/23/24 07:00 06/23/24 07:00
Physical Exam
Exam
General: Well Developed and Well Nourished
HEENT: Other (jaundice )
Respiratory: Clear
Cardiac: Regular Rhythm
GI: Soft, Non Distended and Tender (diffuse-- limited exam with pt cooperation but noted + abdominal pain)
Musculoskeletal: No Clubbing and No Cyanosis
Skin: Warm and Dry
Neuro: Awake, Alert and AO x 3
Psych: Calm
Results
WBC 3.8 10^3/uL (4.8-10.8) L 06/23/24 07:14
Hgb 8.3 g/dL (12.0-16.0) L 06/23/24 07:14
Hct 22.7 % (37.0-47.0) L 06/23/24 07:14
MCV 98.3 fL (81.0-99.0) 06/23/24 07:14
Plt Count 84 10^3/uL (130-400) L 06/23/24 07:14
Absolute Neuts (auto) 3.2 10^3/uL (1.4-6.5) 06/22/24 13:35
PT 20.9 Sec (11.4-14.6) H 06/23/24 00:33
INR 1.74 06/23/24 00:33
APTT 46.1 Sec (23.4-35.0) H 06/23/24 00:33
Sodium 137 mmol/L (135-145) 06/23/24 07:14
Potassium 3.6 mmol/L (3.5-5.1) 06/23/24 07:14
Chloride 110 mmol/L (98-107) H 06/23/24 07:14
Carbon Dioxide 23 mmol/L (22-30) 06/23/24 07:14
BUN 17 mg/dl (7-17) 06/23/24 07:14
Creatinine 0.4 mg/dL (0.6-1.0) L 06/23/24 07:14
Calcium 8.5 mg/dl (8.4-10.2) 06/23/24 07:14
Total Bilirubin 5.6 mg/dl (0.2-1.3) H 06/23/24 07:14
AST 54 U/L (14-36) H 06/23/24 07:14
ALT 26 U/L (0-35) 06/23/24 07:14
Alkaline Phosphatase 220 U/L (38-126) H 06/23/24 07:14
Hepatitis C Antibody Negative (Negative) 06/22/24 18:31
Diagnostic Image Results:
06/23/24 US abdomen
Sonographic features suggest possibility of mild cirrhosis.
The spleen is normal size. No ascites.
No gallstones or bile duct dilatation.
06/23/24 MR Brain Without Contrast
1. No MRI evidence for acute infarct.
2. 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
3. Tiny chronic intraparenchymal microhemorrhages in the left frontal lobe and right putamen.
4. Mild diffuse cerebral and cerebellar volume loss.
5. Severe tortuosity of the vertebral and basilar arteries.
06/22/24- head CT
No acute intracranial abnormality noted.
04/04/25 CT Abd/pel W Iv And Oral Contr
1. Suspicion for a mild enterocolitis.
2. Slight nodularity of the liver contour raising concern for the early changes of cirrhosis.
3. Mild abdominopelvic ascites.
4. Colonic diverticulosis.
5. Small bilateral pleural effusions.
Prior GI Procedures:
EGD: due in August unclear if completed in past
Colonoscopy: unsure if completed in past
Assessment / Plan
-
Pt is a 88yo presents with hx HTN, dementia, prior C-diff, UTI primary medical care in [place] where she lived for years. Family noted decline over several months and patient was noted with admission in [place] with UTI, c-diff, and elevated
ammonia level up to 113. She then moved to [place] with family and was admitted in March with epistaxis, anemia, GI bleed, with noted cirrhosis on imaging with LE edema, coagulopathy, elevated LFT's, and thrombocytopenia. She was seen outpatient and
due for follow up EGD in August with Dr. Spence and serology work up that is pending to be completed. Per family no hx ETOH use but patient would often self medicate with large dose of vitamin supplement. She did possible have hepatitis in past
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 She currently admits to vague abdominal pain with limited abdominal exam but denies dysphagia, GERD, diarrhea, constipation, or rectal bleeding with some change in bowel habits over last week
per family. Unsure about prior EGD or colonoscopy but due for EGD in August.
-confusion- multifactorial with dementia and HE with UTI
-abdominal pain
-Ecoli UTI
-cirrhosis - ? long standing with hx elevated ammonia in [place] but noted on imaging since admission in March
-incrreased LFT's
-anemia
-coagulopathy
-thrombocytopenia
other med problems:
-hx c-diff
-prior UTI
-dementia
-epistaxis
-entercolitis on imaging in March
PLAN:
etiology of confusion likely worsening with hx dementia and component of HE (mild with ammonia 31-- family did not tremor ? asterixis prior to admission) with current Ecoli UTI
cont to treat UTI
cont Lactulose daily -- per family some improvement today would monitor on daily dose and need to increase or add Xifaxan if not improving
MRI/HCT stable
MELD 3.0 22
pt with some abdominal pain on exam but limited with cooperation -- cont to monitor if not improving consider CT
pt due follow up in August EGD for anemia/variceal screening consider sooner if signs of bleeding but currently brown stools
US as noted no ascites to tap to rule out SBP
trend hbg with anemia
discussed with cirrhosis and multiple admission in past year need to consider goal of care-- not transplant candidate given age and cirrhosis management is supportive care -- pt is DNR
-
-
Thank you for consultation and allowing me to participate in the patient's care. Please call the health management consultant GI physician during the after hours with any questions or concerns.
[2024-06-23] MEDS: D5/0.45%NACL 1000 IV (13:09)
--- NOTE | 2024-06-23 13:56 | W.PN.HOSP.TC ---
Today's Communication/Plan
-
Assessment / Plan
Assessment / Plan
Her answers today are more consistent with dementia there is no evidence of word repetition on my examination, when asked where she was she states I am right here, when asked can I see her hands she states she you can see my hands whenever you want
Scleral icterus
MMM dry mucous membranes, left tongue lateral bruise
No JVD
CTABL
RRR, S1/S2
Soft, tender, nondistended, bowel sounds active
Warm, Dry, asterixis and tremors improved since yes
Awake
Confused
Toxic metabolic encephalopathy in the setting of dementia. Differential diagnosis of acuity likely hepatic encephalopathy versus UTI
-Check B12 TSH folate
-Hepatitis C negative, acute viral panel that was completed 03/30 was negative as well
-Check MRI without evidence of acute infarct however notes severe white matter disease, tiny chronic IP microhemorrhages of the left frontal lobe/right putaminal
-EEG r/o subclinical seizure
-Continue lactulose, goal 3-4 bms
-Continue Rocephin which will cover for SBP and E. coli UTI
-Follow-up GI
Cirrhosis
-Started lactulose
-Previous hepatitis panel negative
-Consult GI
-Will need variceal screening as outpatient
-Will likely eventually need diuretics initiated would appreciate GIs input
Per right upper quadrant ultrasound/abdominal ultrasound
No ascites noted
Transaminitis
-Check coags
Macrocytic anemia without blood loss, chronic
-Check B12 folate
Chronic thrombocytopenia
-B12 folate likely related to chronic liver disease
Hypertension
Continue amlodipine metoprolol valsartan
If hypotensive will need to hold
DVT PPX
SCD, unitl coags comes back if inr <2 and plt >100 will start hsq
Anticipated Discharge: > 48 hours
Subjective/Interval History
-
Date of Service: June 23, 2024
Seen and examined. No new complaints. No acute overnight events.
Objective Data
-
Labs:
Laboratory Results
06/23/24
07:14
WBC 3.8 L
Hgb 8.3 L
Hct 22.7 L
Plt Count 84 L
Sodium 137
Potassium 3.6
Chloride 110 H
Carbon Dioxide 23
BUN 17
Creatinine 0.4 L
Glucose 108 H
Calcium 8.5
Total Bilirubin 5.6 H
AST 54 H
ALT 26
Alkaline Phosphatase 220 H
Vital Signs:
Vital Signs
Temp Pulse Resp BP Pulse Ox
98 F 78 19 143/66 98
06/23/24 07:00 06/23/24 07:00 06/23/24 07:00 06/23/24 07:00 06/23/24 07:00
[2024-06-23 15:00] VITALS: BP 149/78
--- NOTE | 2024-06-23 16:05 | CM ---
manager infusion reviewed patient's chart and patient lives with her son and daughter in law in a 2 story home, with 6 steps to enter, patient is independent to some assist from family with adl's and uses a walker with ambulation, patient is current
with [facility], [facility] liaison to send a SALINAS to visiting nurses.
PCP: Dr Smith
Pharmacy: [facility] in [place].
Plan; Home with [facility] when stable v's skilled
[2024-06-23] MEDS: STERILE WATER FOR INJECTION 10 ML IV (17:15)
[2024-06-23] MEDS: ROCEPHIN 1000 MG IV (17:15)
--- NOTE | 2024-06-23 17:48 | EEGC.RPT ---
Continuous EEG Report
Recording
Start Date of Data Reviewed: 06/23/24
Done with Video Recording: Yes
Electrocardiogram: Unremarkable
Report
TECHNICAL REMARKS:��This is a technically satisfactory eighteen channel record employing 21 disc electrodes applied according to a measured international 10-20 electrode placement system.��There were no significant technical difficulties.��The study
was done on a [employer] System.
STUDY DURATION: 29 min, 17 secs
MEDICATIONS: Ceftriaxone
CLINICAL HISTORY: This is an 88-year-old woman with encephalopathy.�This study was requested to look for epileptiform activity.
REPORT: �At the onset of the EEG, the patient is in altered mental status. The background activity consists of 6-7 Hz, impersistent, posteriorly dominant, moderate amplitude, symmetric, and rhythmic activity. Continuous generalized, 2-3 Hz, 30-50 uV
polymorphic delta activity was seen.� Frequent generalized triphasic waves were present. Stepwise intermittent photic stimulation(1-31 Hz) did not induce additional abnormalities. Hyperventilation was not performed. No epileptiform activity was
seen.�
�
IMPRESSION: �This is an abnormal EEG recorded in the patient in drowsy state due to a moderate to severe generalized slowing. This finding indicates diffuse cerebral dysfunction, nonspecific in terms of etiology.
[2024-06-23] MEDS: MOTRIN 200 MG PO (20:53)
[2024-06-23 23:50] VITALS: BP 143/65
[2024-06-24 07:30] VITALS: BP 154/68
[2024-06-24] MEDS: DUPHALAC/CHRONULAC 20 GRAMS PO (07:51)
[2024-06-24] MEDS: LOPRESSOR 12.5 MG PO ×2 (07:52→20:11)
[2024-06-24] MEDS: NORVASC 2.5 MG PO (07:52)
[2024-06-24] MEDS: DIOVAN 320 MG PO (07:52)
[2024-06-24] MEDS: PROTONIX 40 MG PO (07:52)
[2024-06-24] MEDS: MAG-TAB SR 84 MG PO (07:52)
--- NOTE | 2024-06-24 09:31 | W.PN.GI.CBS2 ---
Today's Communication / Plan
-
Continue daily lactulose
Suspect her confusion is multifactorial due to dementia and UTI in addition to HE
Abd nontender today, hold off on CT
Assessment / Plan
-
Pt is a 88yo presents with hx HTN, dementia, prior C-diff, UTI primary medical care in [place] where she lived for years. Family noted decline over several months and patient was noted with admission in [place] with UTI, c-diff, and elevated
ammonia level up to 113. She then moved to [place] with family and was admitted in March with epistaxis, anemia, GI bleed, with noted cirrhosis on imaging with LE edema, coagulopathy, elevated LFT's, and thrombocytopenia. She was seen outpatient and
due for follow up EGD in August with Dr. Spence and serology work up that is pending to be completed. Per family no hx ETOH use but patient would often self medicate with large dose of vitamin supplement. She did possible have hepatitis in past
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 She currently admits to vague abdominal pain with limited abdominal exam but denies dysphagia, GERD, diarrhea, constipation, or rectal bleeding with some change in bowel habits over last week
per family. Unsure about prior EGD or colonoscopy but due for EGD in August.
-confusion- multifactorial with dementia and HE with UTI
-abdominal pain
-Ecoli UTI
-cirrhosis - ? long standing with hx elevated ammonia in [place] but noted on imaging since admission in March
-incrreased LFT's
-anemia
-coagulopathy
-thrombocytopenia
other med problems:
-hx c-diff
-prior UTI
-dementia
-epistaxis
-entercolitis on imaging in March
Subjective
Subjective
Date of Service: June 24, 2024
Still remains confused. Denies abd pain today
Objective
Data Reviewed
Laboratory Data:
Laboratory Results
PT 20.9 Sec (11.4-14.6) H 06/23/24 00:33
INR 1.74 06/23/24 00:33
APTT 46.1 Sec (23.4-35.0) H 06/23/24 00:33
Total Bilirubin 5.6 mg/dl (0.2-1.3) H 06/23/24 07:14
AST 54 U/L (14-36) H 06/23/24 07:14
ALT 26 U/L (0-35) 06/23/24 07:14
Alkaline Phosphatase 220 U/L (38-126) H 06/23/24 07:14
Vital Signs and I&O:
Vital Signs
Temp Pulse Resp BP Pulse Ox
98.4 F 72 20 154/68 98
06/24/24 07:30 06/24/24 07:30 06/24/24 07:30 06/24/24 07:30 06/24/24 07:30
I&O
06/23/24 06/24/24 06/25/24
06:59 06:59 06:59
Intake Total 1400 / 1400
Balance 1400 / 1400
Physical Exam
Physical Exam
GI: Soft, Non Distended and Non Tender
--- NOTE | 2024-06-24 10:27 | W.PN.HOSP.TC ---
Today's Communication/Plan
-
DC pending stool studies
Assessment / Plan
Assessment / Plan
Jaundice, no acute distress, sitting in bedside chair, pleasantly demented
Scleral icterus
MMM dry mucous membranes, left tongue lateral bruise
No JVD
CTABL
RRR, S1/S2
Soft, tender, nondistended, bowel sounds active
Warm, Dry, asterixis and tremors improved since yes
Awake
Confused
Toxic metabolic encephalopathy in the setting of dementia that is multifactorial related to hepatic encephalopathy and UTI
-Check B12 TSH folate
-Hepatitis C negative, acute viral panel that was completed 03/30 was negative as well
-Check MRI without evidence of acute infarct however notes severe white matter disease, tiny chronic IP microhemorrhages of the left frontal lobe/right putaminal
-EEG abnormal EEG with moderate to severe generalized slowing nonspecific
-Continue lactulose, goal 3-4 bms
-Continue Rocephin to treat for E. coli UTI, c plan for 3-day course
-Follow-up GI
Cirrhosis
Per GI suspect-
-Started lactulose, goals 3-4 BMs daily
-Previous hepatitis panel negative
-GI following
-Will need variceal screening as outpatient
-Will likely eventually need diuretics initiated would appreciate GIs input
Per right upper quadrant ultrasound/abdominal ultrasound
No ascites noted
Transaminitis
-Check coags
Macrocytic anemia without blood loss, chronic
-B12/folate within normal
Chronic thrombocytopenia
-Likely related to cirrhosis
Hypertension
Continue amlodipine metoprolol valsartan
If hypotensive will need to hold
DVT PPX
SCD, unitl coags comes back if inr <2 and plt >100 will start hsq
Anticipated Discharge: Today
Subjective/Interval History
-
Date of Service: June 24, 2024
Seen and examined. Sitting in bedside chair in the hallway the.
Per nurse has had multiple episodes of diarrhea though on lactulose
I spoke with her son Edouard over the phone and in person at bedside. Provided update. Will obtain stool samples. Once they return if no additional agents/medications/antibiotics are required then likely discharge home later today if not early
tomorrow morning.
Objective Data
-
Labs:
Laboratory Results
06/24/24
06:00
WBC Pending
Hgb Pending
Hct Pending
Plt Count Pending
PT Pending
INR Pending
Sodium Pending
Potassium Pending
Chloride Pending
Carbon Dioxide Pending
BUN Pending
Creatinine Pending
Glucose Pending
Calcium Pending
Total Bilirubin Pending
AST Pending
ALT Pending
Alkaline Phosphatase Pending
Vital Signs:
Vital Signs
Temp Pulse Resp BP Pulse Ox
98.4 F 72 20 154/68 98
06/24/24 07:30 06/24/24 07:30 06/24/24 07:30 06/24/24 07:30 06/24/24 07:30
I&O
06/23/24 06/24/24 06/25/24
06:59 06:59 06:59
Intake Total 1400 / 1400
Balance 1400 / 1400
--- NOTE | 2024-06-24 15:40 | CM ---
CM received consult for hospice, call placed to patients son and daughter in law, spoke with Brennen regarding consult. Family agreeable to referral to Hospice, would like patient to remain at home. Referral placed to Hospice, TT to
hospice power station operator, Marsha Duong. CM will continue to follow for all discharge planning needs.
Plan; referral to Hospice
[2024-06-24 15:57] VITALS: BP 136/64
[2024-06-24] MEDS: ROCEPHIN 1000 MG IV ×2 (16:34)
[2024-06-24] MEDS: STERILE WATER FOR INJECTION 10 ML IV (17:31)
--- NOTE | 2024-06-24 17:52 | HOSPNOTE ---
Addendum entered by Marsha Duong RN 06/25/24 09:16:
Spoke with geoff Aparicio and DIL again about hospice and answered additional questions. Reviewed with hospice medical clerical assistant; Patient meets eligibility criteria for hospice at home. Family has asked for hospice to double check that hospice is covered
under her current plan; and if so they are requesting a visit from hospice admission nurse on Monday 06/26. CM notified.
Original Note:
Spoke with geoff Aparicio [phone]. Explained hospice philosophy and services. family is leaning towards hospice at home. Family asked a few questions - i will follow up with them in the morning Sunday 06/25 with the answers. Updated [facility].
[2024-06-24] MEDS: MOTRIN 200 MG PO (20:17)
[2024-06-24 23:15] VITALS: BP 144/58
[2024-06-25] MEDS: DIOVAN 320 MG PO (09:14)
[2024-06-25] MEDS: NORVASC 2.5 MG PO (09:14)
[2024-06-25] MEDS: LOPRESSOR 12.5 MG PO (09:14)
[2024-06-25] MEDS: DUPHALAC/CHRONULAC 20 GRAMS PO (09:14)
[2024-06-25] MEDS: MAG-TAB SR 84 MG PO (09:14)
[2024-06-25] MEDS: PROTONIX 40 MG PO (09:14)
[2024-06-25] MEDS: MOTRIN 200 MG PO (10:03)
--- NOTE | 2024-06-25 10:09 | CM ---
Addendum entered by Tracy Boyd 06/25/24 10:22:
Hospice
Original Note:
CM reviewed chart, reviewed with Marsha from [facility], plan to admit patient tomorrow with home hospice, equipment to be delivered tomorrow. Phone call to patients sonEdouard, agreeable to discharge plan, will provide transportation home around
11:00 a.m. IMM verbally reviewed, agreeable to discharge, placed in chart. OOH DNR form placed on chart. CM will continue to follow for all discharge planning needs.
Plan; home with Hospice, family to transport.
--- NOTE | 2024-06-25 10:18 | W.PN.HOSP.TC ---
Today's Communication/Plan
-
Home hospice to be initiated with [facility] tomorrow
More than 30 minutes spent in discharge including
Final examination of the patient
Summarizing hospital stay
Instructions for continuing care to all relevant caregivers
Preparation of discharge records, prescriptions, and referral forms
Total time spent (in minutes): 33mins
Assessment / Plan
Assessment / Plan
Jaundice, no acute distress, sitting in bedside chair, pleasantly demented
Scleral icterus
MMM dry mucous membranes, left tongue lateral bruise
No JVD
CTABL
RRR, S1/S2
Soft, tender, nondistended, bowel sounds active
Warm, Dry, asterixis and tremors improved since yes
Awake
Confused
Toxic metabolic encephalopathy in the setting of dementia that is multifactorial related to hepatic encephalopathy and UTI
-Check B12 TSH folate
-Hepatitis C negative, acute viral panel that was completed 03/30 was negative as well
-Check MRI without evidence of acute infarct however notes severe white matter disease, tiny chronic IP microhemorrhages of the left frontal lobe/right putaminal
-EEG abnormal EEG with moderate to severe generalized slowing nonspecific
-Continue lactulose, goal 3-4 bms
-Continue Rocephin to treat for E. coli UTI, c plan for 3-day course
-Follow-up GI
Cirrhosis
Per GI suspect-
-Started lactulose, goals 3-4 BMs daily
-Previous hepatitis panel negative
-GI following
-Will need variceal screening as outpatient
-Will likely eventually need diuretics initiated would appreciate GIs input
Per right upper quadrant ultrasound/abdominal ultrasound
No ascites noted
Transaminitis
-Check coags
Macrocytic anemia without blood loss, chronic
-B12/folate within normal
Chronic thrombocytopenia
-Likely related to cirrhosis
Hypertension
Continue amlodipine metoprolol valsartan
If hypotensive will need to hold
DVT PPX
SCD, unitl coags comes back if inr <2 and plt >100 will start hsq
For home hospice
Anticipated Discharge: Today
Subjective/Interval History
-
Date of Service: June 25, 2024
Seen and examined. No new complaints. No acute overnight events.
Objective Data
-
Labs:
Laboratory Results
06/25/24
06:00
WBC Pending
Hgb Pending
Hct Pending
Plt Count Pending
Sodium Pending
Potassium Pending
Chloride Pending
Carbon Dioxide Pending
BUN Pending
Creatinine Pending
Glucose Pending
Calcium Pending
Total Bilirubin Pending
AST Pending
ALT Pending
Alkaline Phosphatase Pending
Vital Signs:
Vital Signs
Temp Pulse Resp BP Pulse Ox
97.8 F 67 16 144/58 96
06/24/24 23:15 06/24/24 23:15 06/24/24 23:15 06/24/24 23:15 06/24/24 23:15
I&O
06/24/24 06/25/24 06/26/24
06:59 06:59 06:59
Intake Total 1400 / 1400 120 / 120
Balance 1400 / 1400 120 / 120
--- NOTE | 2024-06-25 10:20 | W.DCSUMMARY ---
Discharge Summary
Discharge Data
Date of Admission: 06/22/24
Date of Discharge: 06/25/24
-
Pending Results: No
Hospital Course
88 female history of hypertension, dementia, macrocytic anemia, chronic thrombocytopenia, cirrhosis
Presented with confusion and found to have hepatic encephalopathy and a UTI. Treated with lactulose and IV antibiotics. Will be discharged home with lactulose daily with a goal bowel movements of 2-3. Completed IV antibiotics in the hospital for
E. coli UTI.
Zyprexa 2.5 mg initiated at night after speaking with family and psychiatry as there is concern for agitation and combativeness with biting and hitting that typically gets worse at nighttime. This is likely secondary to dementia with behavioral
disturbances.
Discussed with family due to dementia and cirrhosis. Cirrhosis is considered a end-stage condition therefore interested in hospice. Signed on to [facility] with .
Discharge Plan
-
Patient Disposition: Home with Hospice
Discharge Diagnosis/Procedures: Toxic metabolic encephalopathy in the setting of hepatic encephalopathy and UTI in the setting of dementia
Condition: Good
Diet: Low Fat, Low Cholesterol and 2 Gram Sodium
Activity Restrictions/Additional Instructions:
Presented with confusion and found to have hepatic encephalopathy and a UTI. Treated with lactulose and IV antibiotics. Will be discharged home with lactulose daily with a goal bowel movements of 2-3. Completed IV antibiotics in the hospital for
E. coli UTI.
Zyprexa 2.5 mg initiated at night after speaking with family and psychiatry as there is concern for agitation and combativeness with biting and hitting that typically gets worse at nighttime. This is likely secondary to dementia with behavioral
disturbances.
Discussed with family due to dementia and cirrhosis. Cirrhosis is considered a end-stage condition therefore interested in hospice. Signed on to [facility] with .
Referrals:
Inder Henry MD [Active] - in two to four weeks
Salomon Park MD, Resident [Family Provider] -
Prescriptions:
New
olanzapine 2.5 mg Tablet
2.5 mg PO HS Qty: 30 0RF
lactulose 20 gram/30 mL Solution
20 g PO DAILY Qty: 30 0RF
Continued
magnesium oxide 400 mg magnesium Tablet
400 mg PO DAILY
metoprolol tartrate 25 mg Tablet
12.5 mg PO BID Qty: 0 0RF
pantoprazole 40 mg tablet,delayed release (DR/EC)
40 mg PO DAILY Qty: 30 0RF
amlodipine [Norvasc] 2.5 mg Tablet
2.5 mg PO DAILY
valsartan 320 mg Tablet
320 mg PO DAILY
ibuprofen [Advil] 200 mg Tablet
200 mg PO Q6HPRN PRN (Reason: back pains)
Discharge Orders:
Discharge Patient (As Directed); Ordered 06/25/24
Ordered By: Wojciech Diallo
Discharge Date and Time
Print Language: WALLISIAN
[2024-06-25 10:28] VITALS: BP 143/73
== END 2024-06-25 12:34 | disposition hospice, home (50) | DRG 689 ==
LOC: 4 WEST ACU 19:26
PROVIDERS: Student in an Organized Health Care Education/Training Program; ADMITTING PHYSICIAN Hospitalist; CONSULT PHYSICIAN Specialist; EMERGENCY PHYSICIAN Emergency Medicine; FAMILY PHYSICIAN Student in an Organized Health Care Education/Training Program
DX: N39.0 Urinary tract infection, site not specified (principal); G92.8 Other toxic encephalopathy; F03.918 Unspecified dementia, unspecified severity, with other behavioral disturbance; R18.8 Other ascites; D68.9 Coagulation defect, unspecified; K76.82 Hepatic encephalopathy; K74.60 Unspecified cirrhosis of liver; B96.20 Unspecified Escherichia coli [E. coli] as the cause of diseases classified elsewhere; I10 Essential (primary) hypertension; D53.9 Nutritional anemia, unspecified; D69.6 Thrombocytopenia, unspecified; Z79.899 Other long term (current) drug therapy; K57.30 Diverticulosis of large intestine without perforation or abscess without bleeding; K76.0 Fatty (change of) liver, not elsewhere classified; Z66 Do not resuscitate; Z87.440 Personal history of urinary (tract) infections; Z90.710 Acquired absence of both cervix and uterus
CPT/HCPCS: 70450; 70551; 76700; 80053; 81003; 81015; 82140; 82550; 82607; 82728; 82746; 83540; 83550; 83880; 84443; 85025; 85027; 85610; 85730; 86803; 87077; 87086; 87186; 87324; 87449; 87798; 95816; 99285